=== PATIENT | male | born 1945 | race Caucasian/White ===

== ENCOUNTER 2016-05-25 07:07 | Emergency (ER) | payer MEDICARE, BC ==
--- NOTE | 2016-05-25 08:05 | EDM.PDOC ---
[id number] for 2 hours Time Seen by Provider: 05/25/16 07:33 Source of Information: Reports: Patient, Family History Limitations: Reports: No limitations - History of Present Illness INITIAL COMMENTS - FREE TEXT/NARRATIVE: Evaristo appears this morning with complaints of a nose bleed since approximately 6 Am. He states since he has started taking the cancer medication Imbruvica he has had recurrent nose bleeds. He states this is the worst of them. He has it packed with tissue. He has no other complaints. Has had nasal cautery performed by both his PCP and nose specialist. Symptom Onset Date: 05/25/16 Symptom Onset Time: 06:00 Severity: moderate Location: Reports: right nares - Related Data Allergies/ADRs: Allergies Allergy/AdvReac Type Severity Reaction Status Date / Time atorvastatin calcium Allergy Hives Verified 05/25/16 07:45 [From Lipitor] rosuvastatin calcium Allergy Difficulty Verified 05/25/16 07:45 [From Crestor] Breathing Home Meds: Home Meds Albuterol/Ipratropium [Combivent Respimat] 1 puff INH TID 05/24/15 [History] Brimonidine Tartrate [Alphagan P] 1 drop EYEBOTH BID 05/24/15 [History] Calcium Carbonate/Vitamin D3 [Os-Ric 500+D] 1 tab PO TIDMEALS 05/24/15 [History] Cholestyramine/Aspartame [Questran Light Powder] 4 gm PO ASDIRECTED PRN [History] Ezetimibe [Zetia] 1 tab PO DAILY 05/24/15 [History] Ferrous Sulfate 325 mg PO ASDIRECTED 05/24/15 [History] Flaxseed/Omega3,6,9/Fatty Acid [Flax Seed Oil 1,300 mg Softgel] 1 each PO TID [History] Ibrutinib [Imbruvica] 3 cap PO DAILY 05/24/15 [History] Levothyroxine Sodium [Synthroid] 1 tab PO ASDIRECTED 05/24/15 [History] Lisinopril [Lisinopril] 5 mg PO DAILY 05/24/15 [History] Multivitamin [Multi-Vitamin Daily] 1 each PO DAILY 05/24/15 [History] Niacin 500 mg PO DAILY 05/24/15 [History] Omeprazole [Prilosec] 20 mg PO DAILY 05/24/15 [History] Riboflavin [Vitamin B-2] 25 mg PO DAILY 05/24/15 [History] Salmeterol Xinafoate [Serevent Diskus] 50 mcg IH BID 05/24/15 [History] Saw [place] Fruit [Saw [place]] 2 cap PO BID 05/24/15 [History] Past Medical History HEENT History: Reports: Cataract, Glaucoma, Other (see below) Other HEENT History: Blepharitis bilat. Pinguecula L eye. Epistaxis Cardiovascular History: Reports: High cholesterol, Hypertension, Other (see below) Other Cardiovascular History: Tachycardia. Low HDL Respiratory History: Reports: COPD, Interstitial lung disease, Sleep apnea Other Respiratory History: Sleep related hypoxia Gastrointestinal History: Reports: Colon polyp, PUD, Other (see below) Other Gastrointestinal History: Abdominal lymphadenopathy Genitourinary History: Reports: Other (see below) Musculoskeletal History: Reports: Other (see below) Other Musculoskeletal History: Closed FX of scapula Neurological History: Reports: Other (see below) Other Neuro History: Essential tremor Endocrine/Metabolic History: Reports: Hypothyroidism Oncologic (Cancer) History: Reports: Basal cell carcinoma, Other (see below) Other Oncologic History: Chronic lymphocystic leukemia - Past Surgical History GI Surgical History: Reports: Colonoscopy, Polypectomy, Other (see below) Other GI Surgeries/Procedures: EGD Social & Family History - Tobacco Use Smoking Status *Q: Former Smoker ED ROS ENT - Review of Systems Review Of Systems: ROS reveals no pertinent complaints other than HPI. ED EXAM, ENT - Physical Exam Exam: See Below Exam Limited By: No limitations General Appearance: alert, WD/WN, no apparent distress Nose: normal inspection, dried blood, other (right nare inspected, no active epistaxis noted. Prior cautery sights were visualized.) Mouth/Throat: Normal inspection, Other (No posterior pharynx bloody drainage noted.) Neurological: alert, oriented, CN II-XII intact, normal cognition Psychiatric: normal affect, normal mood Course - Vital Signs Last Recorded V/S: Last Vital Signs Temp 35.4 C 05/25/16 07:10 Pulse 77 05/25/16 07:10 Resp 18 05/25/16 07:10 BP 119/74 05/25/16 07:10 Pulse Ox 91 L 05/25/16 07:10 - Re-Assessments/Exams Free Text/Narrative Re-Assessment/Exam: 05/25/16 08:12 I did attempt to cauterize any openly active bleeding to the right nare. After removing the tissue packing, I was unable to visualize any anterior nasal epistaxis. I did not visualize any bleeding to the posterior nasal cavity either. Patient feels that active bleeding may have ceased. Will observe for 15-30 minutes and discharge if in fact the bleeding has stopped, insert a nasal tampon if it resumes. Departure - Departure Time of Disposition: 08:25 Disposition: Home, Self-Care 01 Condition: good Clinical Impression: Right-sided epistaxis Instructions: Nosebleed, [id number] Referrals: Arti Byers, [Primary Care Provider] - Forms: ED Department Discharge Additional Instructions: Return for any additional uncontrolled nosebleeds. You can use tissue or gauze to apply pressure and get your nose bleed to stop as this was successful for you this morning. You will continue to have these as long as you are on your current cancer medication. Please call with any questions or concerns. - Problem List & Annotations (1) Right-sided epistaxis SNOMED Code(s): 374700567 Code(s): R04.0 - EPISTAXIS Status: Acute Priority: Medium - Problem List Review Problem List Initiated/Reviewed/Updated: Yes - Assessment/Plan Assessment:: Right sided epistaxis Plan: Return for any additional uncontrolled nosebleeds. You can use tissue or gauze to apply pressure and get your nose bleed to stop as this was successful for you this morning. You will continue to have these as long as you are on your current cancer medication. Please call with any questions or concerns.
== END 2016-05-25 08:33 | disposition home or self-care (01) ==
LOC: VM.ED 07:07
CPT/HCPCS: 99282-GF; 99283

== ENCOUNTER 2017-03-30 11:01 | Inpatient (IN) | payer MEDICARE, BC ==
[2017-03-30] MEDS ORDERED: Acetaminophen 325 MG Tab PO PRN (11:19)
[2017-03-30] MEDS ORDERED: Ondansetron 4 MG Tab.DIS PO PRN (11:19)
[2017-03-30] MEDS: Albuterol/Ipratropium 3.0-0.5 MG/3 ML Neb Soln NEB SCH ×2 (12:27→20:37)
[2017-03-30] MEDS: Sodium Chloride 0.9% 10 ML Syringe FLUSH PRN (12:32)
[2017-03-30] MEDS: Lactated Ringers 1,000 ML IV SCH ×2 (12:51→20:59)
[2017-03-30] MEDS: Oseltamivir 30 MG Cap PO SCH ×2 (12:57→20:37)
[2017-03-30] MEDS ORDERED: Albuterol/Ipratropium 3.0-0.5 MG/3 ML Neb Soln NEB PRN (13:03)
[2017-03-30] MEDS: predniSONE 20 MG Tab PO SCH (14:09)
[2017-03-30] MEDS: Doxycycline 100 MG Cap PO SCH ×2 (14:14→20:37)
[2017-03-30] MEDS: Psyllium Husk Powder Sugar Free 5.85 GM Packet PO SCH (14:14)
[2017-03-30] MEDS: SAW PALMETTO FRUIT PO SCH (20:34)
[2017-03-30] MEDS: BRIMONIDINE TARTRATE EYEBOTH SCH (20:36)
[2017-03-30] MEDS: Formoterol/Mometasone 200-5 MCG 8.8 GM Inhaler IH SCH (20:36)
--- NOTE | 2017-03-30 22:16 | HP ---
CHIEF COMPLAINT: Influenza A. HISTORY OF PRESENT ILLNESS: This is a 71-year-old male with longstanding CLL, on Imbruvica treatments, who came into the clinic with fever, chest congestion, productive cough, fatigue, and shortness of breath for the past 3 days. His symptoms started on 03/27 in the morning. He does drive school bus, but he has not been aware of any direct influenza exposure. He has not had any productive sputum, but does have underlying COPD, and he is on Combivent currently. He used to use oxygen at night, but stopped due to nosebleeds. He had exacerbation of his lung symptoms in January and had Prednisone at that time. Otherwise, told the nurse that he got up during the night, drove the bus, thinking it was morning, so he has been quite confused. He did not give me this story. I tried to contact her to just collaborate it. Otherwise, he did have lab work through the clinic, which I will mention here also. His white count was normal at 9.5, hemoglobin 16.4, platelets down to 99. They have been closer to 100 in the past as well. Glucose 84, BUN 23, creatinine 1.47, sodium 134, chloride 101, bicarb 22, calcium 9.1, albumin 3.6. AST and ALT normal. Alkaline phosphatase normal. GFR around 47. ALLERGIES: Include Crestor and Lipitor caused hives. MEDICATIONS LIST: Currently includes Metamucil daily p.r.n.; Alphagan eyedrops; prednisone was in January, course has been completed; lisinopril 5 mg daily; Zetia 10 mg daily; Imbruvica 140 mg 3 capsules daily; iron 325 daily; flaxseed 3 times a day; niacin 500 daily; riboflavin 25 mg daily; supplemental twice daily; calcium and vitamin D daily; multivitamin daily; levothyroxine 175 six days a week; Combivent 3 times a day; Symbicort 2 puffs 2 times a day; Prilosec 20 mg daily. PAST MEDICAL HISTORY: Includes essential hypertension; CLL with abdominal lymphadenopathy; hyperlipidemia; COPD with previous smoking 45 years; essential tremor; low HDL; peptic ulcer disease; interstitial lung disease, follows with pulmonary; bronchiectasis without complication, exacerbation in 04/10, got doxycycline; sleep-related hypoxia, but unable to tolerate oxygen due to nose bleeds, some of the bleeding could be from the Imbruvica. SOCIAL HISTORY: The patient is . He lives at home with his . He still drives school bus. He is a former smoker. He drinks rare alcohol. 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 FAMILY HISTORY: He has both parents . His father had stomach cancer. Surgically, he has had previous colonoscopies. REVIEW OF SYSTEMS: All systems reviewed and were negative unless otherwise stated: General: He has felt quite fatigued, but he did not mention any weight changes. He has had fever, but denies any chills. HEENT: He has felt some congestion, sore throat. Cardiac: No chest pain. He has noticed some palpitations. Respiratory: He is coughing but not having increased sputum. He is short of breath. He has wheezing. Abdomen: No nausea, vomiting, abdominal pain, or diarrhea, but he has had a decreased appetite. : No dysuria. Mental Status: He has had some confusion per his report to the nurse. He recognizes me today, but he did come up out of the exam room several times looking for his and needed to be redirected. DIAGNOSTICS: Chest x-ray in the clinic did not review any infiltrates. EKG did note to have atrial fibrillation with a rate of 122. He had a right axis deviation like a pulmonary disease pattern. There was no ST elevation or depression. This was a change from his EKG in 2013, which was normal. PHYSICAL EXAMINATION: Vital Signs: The patient's vitals at the hospital when I examined him to have a weight of 88.1 kg, temp 99.3, pulse 115, blood pressure 111/68, respiratory rate 32. It was 38 in the clinic, O2 of 93% on 2 L. General: He was in no acute distress. Heart: Regularly irregular. Lungs: Lung sounds were decreased with some scattered rhonchi but no wheezing. Abdomen: Nondistended, nontender. Extremities: Warm and dry. No edema. Mental Status: He is alert. He is orientated x3. ASSESSMENT: 1. Influenza A. 2. Acute hypoxic respiratory failure secondary to influenza A. even though his sats in the clinic remained about 90% on room air without oxygen, now over at the hospital due to using the mask, we have had to turn it up to 4 L to maintain sats over 90%. 3. Atrial fibrillation, new onset with rapid ventricular rates, likely due to acute illness with influenza. Given his low platelets, I am going to hold off on any anticoagulation. 4. Essential hypertension. Blood pressures are under good control. Due to renal insufficiency, I am going to hold his MARIANGEL inhibitor. 5. Acute renal failure. Baseline creatinine is 1 or less. His creatinine is up to 1.47. We will give him some IV fluids. We will adjust Tamiflu for renal dosing. 6. Chronic CLL. He is on Imbruvica. I have contacted Hematology regarding this. I am going to hold it for now until I get further recommendations from them. His white count is actually normal. 7. Chronic obstructive pulmonary disease, chronic with exacerbation due to influenza. I am going to give him 20 mg of oral steroids due to his underlying bronchiectasis. I am going to also order doxycycline. PLAN: At this point, the patient will be admitted for acute cares. He will be admitted for scheduled nebulizers, IV fluids, incentive spirometry, flutter valve, repeat lab work in the morning. He will be on continuous pulse oximetry and telemetry. He is a code level 1 for DVT prophylaxis. I have ordered him on SCDs. MKA: 03/30/2017 13:41:19 MODL: 03/30/2017 22:09:15 /[id number]
[2017-03-31] MEDS: Lactated Ringers 1,000 ML IV SCH ×3 (04:10→19:56)
[2017-03-31] MEDS: Omeprazole 20 MG Cap.CR PO SCH (06:12)
[2017-03-31] MEDS: Albuterol/Ipratropium 3.0-0.5 MG/3 ML Neb Soln NEB SCH ×3 (07:24→19:56)
[2017-03-31] MEDS: Ferrous Sulfate 325 MG Tab PO SCH (08:08)
[2017-03-31] MEDS: Doxycycline 100 MG Cap PO SCH ×2 (08:08→19:56)
[2017-03-31] MEDS: Ezetimibe 10 MG Tab PO SCH (08:08)
[2017-03-31] MEDS: predniSONE 20 MG Tab PO SCH (08:08)
[2017-03-31] MEDS: Psyllium Husk Powder Sugar Free 5.85 GM Packet PO SCH (08:08)
[2017-03-31] MEDS: Oseltamivir 30 MG Cap PO SCH ×2 (08:08→19:56)
[2017-03-31] MEDS: SAW PALMETTO FRUIT PO SCH ×2 (08:09→19:57)
[2017-03-31] MEDS: Formoterol/Mometasone 200-5 MCG 8.8 GM Inhaler IH SCH ×2 (08:09→19:57)
[2017-03-31] MEDS: BRIMONIDINE TARTRATE EYEBOTH SCH ×2 (08:09→19:58)
[2017-03-31] MEDS: methylPREDNISolone Sodium Succinate 40 MG/1 ML SDV IVPUSH SCH ×2 (09:25→19:56)
--- NOTE | 2017-03-31 09:48 | PN ---
Progress Note for ALEXANDRE BURTON Date: 03/31/2017 Room #: VM.210 SUBJECTIVE: Hospital day #2 with a 71-year-old admitted with influenza A. He has acute hypoxic respiratory failure. We did have him on a non-rebreather up to 10 L overnight as he does not tolerate the nasal cannula very well due to nose bleeds. This morning, he was put on nasal cannula to eat breakfast. He is saturating into the mid 90s on 5 L. He is feeling okay. He says he is less short of breath. He is still coughing, but it is whitish sputum, some wheezing, but the nebulizers help. No abdominal pain. He continues to have muscle aches. He did have a temp 100.6 at 10:00 p.m. last night. Otherwise, he has been afebrile. Heart rates have been up into the 120s with atrial fibrillation. He has been on IV fluids. He has had only small urine output. Otherwise, the kidney function did improve today. OBJECTIVE: Vital Signs: His temperature is 98.9, pulse 94, blood pressure 98/74, respiratory rate 20. His oxygen level is 92 on 5 L. General: He is in no acute distress. Heart: Irregularly irregular. Lungs: Sounds are decreased with scattered rhonchi and rare expiratory wheezing throughout. Abdomen: Nondistended, nontender. Extremities: Warm and dry. No edema. Mental Status: He is alert. He is orientated x3. He is remembering some of the events from yesterday. IMAGING DATA: Chest x-ray is done. His left hemidiaphragm is slightly elevated. There appears to be some infiltrate on the lateral view. He has been on doxycycline. We will await radiology report. LABORATORY DATA: White count 6.6, hemoglobin 14.5, platelets down to 82. They were around 97 yesterday. Sodium 135, potassium 4.3, chloride 102, bicarb 26, BUN 24, creatinine 1.3, glucose 71, calcium 7.8. ASSESSMENT AND PLAN: 1. Acute hypoxic respiratory failure secondary to influenza A. 2. Influenza A. 3. Chronic lung disease with chronic obstructive pulmonary disease. He used to be on oxygen at night. He has an acute exacerbation due to influenza. He is on oral prednisone and scheduled nebulizers. I am going to increase him the IV Solu-Medrol today. 4. Chronic lymphocytic leukemia. He is on Imbruvica, that has been on hold. He questioned this. I did tell him I have been in contact with his carpenter general who agreed with holding for now. We are following his blood counts. 5. Acute renal failure, improved. Creatinine down to 1.3 today. We will continue IV fluids. 6. Atrial fibrillation, new onset with rapid ventricular response, likely due to acute illness. Heart rates have been up to 120s. We will continue to monitor closely. We will continue to watch the blood pressure. We may need to start digoxin or give IV Cardizem. 7. Essential hypertension. Blood pressure medication is on hold. Blood pressure is actually running lower due to acute illness. PLAN: At this point, the patient will continue acute cares. I am going to start some IV Solu-Medrol. He is on Tamiflu. He is on incentive spirometry. He is on scheduled nebs. We will repeat lab work in the morning. For DVT prophylaxis, he is on SCDs due to low platelets. CHRISTYA: 03/31/2017 08:36:45 MODL: 03/31/2017 09:20:17 /[id number]
[2017-03-31] MEDS: IBRUTINIB PO SCH (15:18)
--- NOTE | 2017-03-31 16:25 | PCM.SN ---
- Free Text/Narrative Note: ABG reviewed and look OK oxygen over 90 and CO2 not elevated. We will add rocephin given known bronchiectasis he has no hx of pseudomonas. He is not currently having purulent sputum. Sputum clt were not obtained due to lack of infiltrates and he is already on ABX.
[2017-03-31] MEDS: cefTRIAXone 2 GM Vial IVPUSH SCH (17:22)
[2017-04-01] MEDS: Omeprazole 20 MG Cap.CR PO SCH (06:14)
[2017-04-01] MEDS: Albuterol/Ipratropium 3.0-0.5 MG/3 ML Neb Soln NEB SCH ×3 (07:26→20:35)
[2017-04-01] MEDS: Psyllium Husk Powder Sugar Free 5.85 GM Packet PO SCH (07:39)
[2017-04-01] MEDS: Ferrous Sulfate 325 MG Tab PO SCH (07:39)
[2017-04-01] MEDS: Oseltamivir 30 MG Cap PO SCH ×2 (07:39→20:35)
[2017-04-01] MEDS: Doxycycline 100 MG Cap PO SCH ×2 (07:39→20:35)
[2017-04-01] MEDS: cefTRIAXone 2 GM Vial IVPUSH SCH (07:39)
[2017-04-01] MEDS: IBRUTINIB PO SCH (07:39)
[2017-04-01] MEDS: Ezetimibe 10 MG Tab PO SCH (07:39)
[2017-04-01] MEDS: methylPREDNISolone Sodium Succinate 40 MG/1 ML SDV IVPUSH SCH ×3 (07:39→20:36)
[2017-04-01] MEDS: Formoterol/Mometasone 200-5 MCG 8.8 GM Inhaler IH SCH ×2 (07:40→20:36)
[2017-04-01] MEDS: BRIMONIDINE TARTRATE EYEBOTH SCH ×3 (07:40→20:35)
[2017-04-01] MEDS: SAW PALMETTO FRUIT PO SCH ×2 (07:40→20:36)
[2017-04-01] MEDS: Lactated Ringers 1,000 ML IV SCH (07:44)
[2017-04-01] MEDS: Diltiazem IR 30 MG Tab PO SCH ×3 (08:00→20:35)
--- NOTE | 2017-04-01 09:21 | PN ---
Progress Note for ALEXANDRE BURTON Date: 04/01/2017 Room #: VM.210 SUBJECTIVE: This is hospital day #3 on a 71-year-old admitted with influenza A and acute hypoxic respiratory failure. The patient is now improving. He is coming down on his non-rebreather mask, as he is 95% to 100%. Plan to go over to simple mask as discussed with RT. He is still coughing, but it is not purulent sputum. He feels it is a little bit better than yesterday. He is actually asking about going home. During the night, he was up thinking it was time to get up and shower. Had taken off all his oxygen and monitoring equipment. We did ABGs yesterday. CO2 was not elevated. He was oxygenating well on 10 L non-rebreather. Otherwise, he has now been afebrile. He has no stomach pain. He is voiding okay. OBJECTIVE: Vital Signs: His temperature is 97; pulse 103; blood pressure 100/60, but it was up to 138/68 last night; respiratory rate 24; and O2 100% on 8 L. General: He is in no acute distress. Heart: Regularly irregular. Respiratory: Lungs sounds are clear throughout without crackles or wheezes. Abdomen: Nondistended and nontender. Extremities: Warm and dry. No edema. Mental Status: He is alert and orientated x3. LABORATORY DATA: Lab work does show white count of 5.1, hemoglobin at 14.2, and platelets at 91. Sodium 139, potassium 4.6, chloride 106, bicarb 26, BUN 19, creatinine 1.2, glucose 116, and calcium 8.2. ASSESSMENT: 1. Acute hypoxic respiratory failure secondary to influenza A, improving. 2. Influenza A, on Tamiflu. 3. Chronic obstructive pulmonary disease with exacerbation due to influenza, on IV prednisone, doxycycline scheduled and p.r.n. nebs. 4. Known bronchiectasis. Rocephin was added yesterday. 5. Chronic lymphocytic leukemia. He is on his home Imbruvica. 6. Thrombocytopenia, stable without bleeding. This is probably related to underlying illness, his CLL, and Imbruvica. 7. Acute renal failure, resolved. His creatinine is down to 1.2 today. He was receiving IV fluids. We will go ahead and stop that today. His intake has been excellent. 8. Atrial fibrillation, new onset, with rapid ventricular rates. Heart rate still remain right around 100. I am going to add some oral Cardizem today and monitor closely. We held off on this due to blood pressures. 9. Essential hypertension. His home MARIANGEL inhibitor is on hold. PLAN: At this point, the patient will continue acute cares. I am going to continue IV Solu-Medrol, IV Rocephin, Tamiflu, and oral doxycycline. RT to change him over to a simple mask and wean oxygen, scheduled nebulizers for DVT prophylaxis. He is on SCDs. I am going to get him up and working with therapies. Anticipate the soonest discharge could be tomorrow. CHRISTIE: 04/01/2017 08:45:59 MODL: 04/01/2017 09:09:13 /[id number]
[2017-04-02] MEDS: Omeprazole 20 MG Cap.CR PO SCH (06:30)
[2017-04-02] MEDS: Albuterol/Ipratropium 3.0-0.5 MG/3 ML Neb Soln NEB SCH (06:58)
[2017-04-02 07:18] LABS: CHLORIDE,CL 107 mmol/L (98-107); SODIUM,NA 140 mmol/L (136-145)
[2017-04-02] MEDS: Formoterol/Mometasone 200-5 MCG 8.8 GM Inhaler IH SCH ×2 (08:00→19:44)
[2017-04-02] MEDS: Ezetimibe 10 MG Tab PO SCH (08:00)
[2017-04-02] MEDS: Doxycycline 100 MG Cap PO SCH ×2 (08:00→19:42)
[2017-04-02] MEDS: cefTRIAXone 2 GM Vial IVPUSH SCH (08:00)
[2017-04-02] MEDS: Oseltamivir 30 MG Cap PO SCH ×2 (08:00→19:41)
[2017-04-02] MEDS: IBRUTINIB PO SCH (08:00)
[2017-04-02] MEDS: Psyllium Husk Powder Sugar Free 5.85 GM Packet PO SCH (08:00)
[2017-04-02] MEDS: Cefuroxime 250 MG Tab PO SCH ×2 (08:37→19:42)
[2017-04-02] MEDS: Ferrous Sulfate 325 MG Tab PO SCH (09:46)
[2017-04-02] MEDS: SAW PALMETTO FRUIT PO SCH ×2 (09:48→19:44)
[2017-04-02] MEDS: methylPREDNISolone Sodium Succinate 40 MG/1 ML SDV IVPUSH SCH ×2 (09:50→19:45)
[2017-04-02] MEDS: Diltiazem IR 30 MG Tab PO SCH (19:42)
[2017-04-02] MEDS: Sodium Chloride 0.9% 10 ML Syringe FLUSH PRN (19:42)
[2017-04-02] MEDS: BRIMONIDINE TARTRATE EYEBOTH SCH (19:44)
--- NOTE | 2017-04-03 00:11 | PN ---
Progress Note for ALEXANDRE BURTON Date: 04/02/2017 Room #: VM.210 SUBJECTIVE: Hospital day #4 on a 71-year-old admitted with influenza A and acute hypoxic respiratory failure. He continues to be confused during the night. He states he is just joking with the nurses. We did do a mini-mental status exam. He scored 26/30. 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 He was 80% of normal, which indicates maybe a mild dementia, but he likely has delirium related to his acute illness. He otherwise, has been afebrile. He is weaned down to 3 L of oxygen. He is feeling better. He has been on scheduled nebulizers. He is still coughing, but he is not short of breath or wheezing. Cough is not productive. He is not coughing up blood. He has had no nosebleeds. OBJECTIVE: Vital Signs: His temperature is 97.2; pulse is 98; blood pressure is 91/59, but later in the day, it was up to 130/90; respiratory rate is 20; and O2 is 96 on 3 L. General: He is in no acute distress. Heart: Regularly irregular. Pulmonary: Lungs sounds are clear to auscultation this morning without crackles or wheezes. Abdomen: Nondistended and nontender. Extremities: Warm and dry. No edema. MENTAL STATUS EXAMINATION: He is alert. He is orientated x3. ASSESSMENT: 1. Acute hypoxic respiratory failure secondary to influenza A, improving. 2. Influenza A, on Tamiflu, day 4 of 5. 3. Chronic obstructive pulmonary disease with exacerbation due to influenza. He is on IV prednisone, IV Rocephin, and oral doxycycline. 4. Known bronchiectasis with exacerbation. 5. CLL, stable, on Imbruvica. 6. Thrombocytopenia, stable without bleeding. This is a chronic problem. 7. Acute renal failure, resolved. His creatinine is down to 1.1. 8. Atrial fibrillation, new onset with rapid ventricular rates. This has improved with the addition of Cardizem. 9. Essential hypertension. His MARIANGEL inhibitor is on hold, but could be re- started on discharge if needed. PLAN: At this point, patient will continue acute cares. I have stopped his IV Rocephin. He did receive his last dose today. We will put him on oral Ceftin for two more days. On discharge, he will be on Tamiflu for one more dose after discharge. We will finish a full week of doxycycline. He will continue IV Solu - Medrol, but go home on prednisone 20 mg daily for five more days. We will change his nebulizers to p.r.n. If he does not require them, he will just go home on his same inhalers with Symbicort and Combivent. Hopefully, he will not need home oxygen because he has had it at night and had nosebleeds with it. We will continue weaning him down today. He has been seen by Therapy and did well. For his delirium due to his acute illness, this seems to be improving. 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 CHRISTIE: 04/02/2017 22:42:00 MODL: 04/03/2017 00:04:23 /[id number]
[2017-04-03 05:39] VITALS: BP 107/82
[2017-04-03] MEDS: Omeprazole 20 MG Cap.CR PO SCH (06:05)
[2017-04-03] MEDS: BRIMONIDINE TARTRATE EYEBOTH SCH (08:52)
[2017-04-03] MEDS: Ezetimibe 10 MG Tab PO SCH (08:52)
[2017-04-03] MEDS: Doxycycline 100 MG Cap PO SCH (08:52)
--- NOTE | 2017-04-03 08:52 | PCM.DCSUM1 ---
Discharge Summary - Hospital Course Brief History: Mr. James is a 71 yo male who was admitted with influenza A and hypoxic respiratory failure after he presented to clinic for confusion as well as cough and increased shortness of breath. - Discharge Data Discharge Date: 04/03/17 Discharge Disposition: Home, Self-Care 01 Condition: Good - Discharge Diagnosis/Problem(s) (1) Acute respiratory failure with hypoxia SNOMED Code(s): 68735413 ICD Code: J96.01 - ACUTE RESPIRATORY FAILURE WITH HYPOXIA Status: Acute Current Visit: Yes Problem Details: He had initially been requiring oxygen via nasal cannula. This is secondary to his influenza and COPD exacerbation. His oxygen requirements progressively decreased until he was weaned off completely as of yesterday. His oxygen saturations have remained stable on room air since yesterday. (2) Influenza A SNOMED Code(s): 505458702 ICD Code: J10.1 - FLU DUE TO OTH IDENT INFLUENZA VIRUS W OTH RESP MANIFEST Status: Acute Current Visit: Yes Problem Details: He was diagnosed with influenza A on admission and started on tamiflu. His cough and shortness of breath progressively improved. As of today, he is completely oriented. Otherwise , see details under COPD and hypoxic respiratory failure. He has been instructed not to drive until he follows up in clinic with Dr. Byers. (3) COPD (chronic obstructive pulmonary disease) SNOMED Code(s): 72280226 ICD Code: J44.9 - CHRONIC OBSTRUCTIVE PULMONARY DISEASE, UNSPECIFIED Status : Acute Current Visit: Yes Problem Details: He also had evidence of a COPD exacerbation based on symptoms and exam. He has been treated with solu-medrol and frequent nebulizers. He will transition to prednisone and his home inhalers for homegoing. He also met criteria to be treated with antibiotics. He has been on ceftriaxone and doxycycline. He will be transitioned to equivalent oral antibiotics for homegoing. Qualifiers: COPD type: COPD with acute exacerbation Qualified Code(s): J44.1 - Chronic obstructive pulmonary disease with (acute) exacerbation (4) ARF (acute renal failure) SNOMED Code(s): 46901740 ICD Code: N17.9 - ACUTE KIDNEY FAILURE, UNSPECIFIED Status: Acute Current Visit: Yes Problem Details: His creatinine was elevated on presentation but quickly returned to normal with IV fluids. Qualifiers: Acute renal failure type: unspecified Qualified Code(s): N17.9 - Acute kidney failure, unspecified (5) Atrial fibrillation with RVR SNOMED Code(s): 899716443807322 ICD Code: I48.91 - UNSPECIFIED ATRIAL FIBRILLATION Status: Acute Current Visit: Yes Problem Details: This is newly diagnosed as well. His rates have been well controlled on diltiazem. He is not felt to be a candidate for anticoagulation. (6) CLL (chronic lymphocytic leukemia) SNOMED Code(s): 51955585 ICD Code: C91.10 - CHRONIC LYMPHOCYTIC LEUK OF B-CELL TYPE NOT ACHIEVE REMIS Status: Chronic Current Visit: Yes Problem Details: He has chronic blood cell abnormalities related to this that have remained stable during his hospitalization. Due to bleeding risk in the setting of thrombocytopenia, he will not be anticoagulated at this time. (7) Hypertension SNOMED Code(s): 07726997 ICD Code: I10 - ESSENTIAL (PRIMARY) HYPERTENSION Status: Chronic Current Visit: Yes Problem Details: Blood pressures have been acceptable. His lisinopril has been held since admission and I will continue to hold this at the time of dismissal. It can be restarted if need be at the time of his hospital follow-up. Qualifiers: Hypertension type: essential hypertension Qualified Code(s): I10 - Essential (primary) hypertension - Patient Summary/Data Operative Procedure(s) Performed: none Complications: none Consults: Consultations 03/31/17 15:24 PT Evaluation and Treatment [CONS] Routine 04/02/17 08:20 OT Evaluation and Treatment [CONS] Routine Labs Pending at D/C: none Recommended Follow-up Testing/Procedures: none Planned Operative Procedure(s) after DC: none Hospital Course: See details under problems above. His confusion, cough, and shortness of breath all progressively improved. He was feeling back to his usual chronic shortness of breath on the day of dismissal and also felt that his confusion had cleared. He will be discharged on oral antibiotics and prednisone and will follow-up in clinic in a couple of weeks. - Patient Instructions Diet: Usual Diet as Tolerated Activity: As Tolerated Driving: Do Not Drive Notify Provider of: Fever, Increased Pain, Nausea and/or Vomiting - Discharge Plan Prescriptions/Med Rec: Diltiazem IR [Cardizem] 30 mg PO Q12HR #60 tablet Doxycycline Calcium [IMW: Doxycycline] 100 mg PO BID #3 capsule Prednisone [IJD: predniSONE] 20 mg PO DAILY #5 tablet Home Medications: Home Meds Albuterol/Ipratropium [Combivent Respimat] 1 puff INH TID 05/24/15 [History] Brimonidine Tartrate [Alphagan P] 1 drop EYEBOTH BID 05/24/15 [History] Calcium Carbonate/Vitamin D3 [Os-Ric 500+D] 1 tab PO DAILY 05/24/15 [History] Ezetimibe [Zetia] 10 mg PO DAILY 05/24/15 [History] Ferrous Sulfate 325 mg PO DAILY 05/24/15 [History] Ibrutinib [Imbruvica] 420 mg PO DAILY 05/24/15 [History] Levothyroxine Sodium [Synthroid] 175 mcg PO DAILY 05/24/15 [History] Multivitamin [Multi-Vitamin Daily] 1 each PO DAILY 05/24/15 [History] Niacin 500 mg PO DAILY 05/24/15 [History] Omeprazole [Prilosec] 20 mg PO DAILY 05/24/15 [History] Riboflavin [Vitamin B-2] 25 mg PO DAILY 05/24/15 [History] Saw [place] Fruit [Saw [place]] 1 cap PO BID 05/24/15 [History] Budesonide/Formoterol [Symbicort 160-4.5 MCG] 2 inh INH BID 03/30/17 [History] Diltiazem IR [Cardizem] 30 mg PO Q12HR #60 tablet 04/02/17 [Rx] Doxycycline Calcium [IMW: Doxycycline] 100 mg PO BID #3 capsule 04/02/17 [Rx] Prednisone [IJD: predniSONE] 20 mg PO DAILY #5 tablet 04/02/17 [Rx] - Discharge Summary/Plan Comment DC Time >30 min.: No - General Info Date of Service: 04/03/17 Subjective Update: Feeling much better this morning and is prepared to go home. His shortness of breath is at baseline. His confusion has cleared and he has not had any unusual behaviors in the past 24 hours. He is still coughing but this is improving as well. No fever or chills. No other concerns. - Review of Systems General: Reports: No Symptoms HEENT: Reports: No Symptoms Pulmonary: Reports: Shortness of Breath, Cough Cardiovascular: Reports: No Symptoms Gastrointestinal: Reports: No Symptoms Musculoskeletal: Reports: No Symptoms Skin: Reports: No Symptoms Neurological: Reports: No Symptoms - Patient Data Vitals - Most Recent: Last Vital Signs Temp 36.6 C 04/03/17 05:37 Pulse 94 04/03/17 05:37 Resp 18 04/03/17 05:37 BP 107/82 04/03/17 05:37 Pulse Ox 94 L 04/03/17 08:00 Weight - Most Recent: 88.11 kg I&O - Last 24 hours: Intake & Output 04/02/17 04/03/17 04/03/17 22:59 06:59 14:59 Intake Total 240 Balance 240 Med Orders - Current: Current Medications Acetaminophen (Tylenol) 650 mg PO Q4H PRN PRN Reason: Pain (Mild 1-3)/fever Albuterol/Ipratropium (Duoneb 3.0-0.5 Mg/3 Ml) 3 ml NEB Q4HRRT PRN PRN Reason: Cough Cefuroxime Axetil (Ceftin) [address] [facility] Last Admin: 04/02/17 19:42 Dose: 250 mg Diltiazem HCl (Cardizem) [address] [facility] Last Admin: 04/02/17 19:42 Dose: 30 mg Doxycycline Hyclate (Vibramycin) [address] [facility] Stop: 04/05/17 23:00 Last Admin: 04/02/17 19:42 Dose: 100 mg Ezetimibe (Zetia) [address] [facility] Last Admin: 04/02/17 08:00 Dose: 10 mg Ferrous Sulfate (Ferrous Sulfate) [address] [facility] Last Admin: 04/02/17 09:46 Dose: 325 mg Levothyroxine Sodium (Levothyroxine) 175 mcg PO DAILY@0700 [facility] Last Admin: 04/03/17 06:05 Dose: 175 mcg Methylprednisolone Sodium Succinate (Solu-Medrol) [address] [facility] Last Admin: 04/02/17 19:45 Dose: 40 mg Mometasone Furoate/Formoterol Fumar (Dulera 200-5 Mcg) [address] [facility] Last Admin: 04/02/17 19:44 Dose: 2 puff Brimonidine Tartrate [Alphagan P] (Own Supply) [address] [facility] Last Admin: 04/02/17 19:44 Dose: 1 drop Saw [place] Fruit [ Saw [place]] (Own Supply) [address] [facility] Last Admin: 04/02/17 19:44 Dose: Not Given Ibrutinib [Imbruvica (] (Own Supply)) [address] [facility] Last Admin: 04/02/17 08:00 Dose: 3 cap Omeprazole (Omeprazole) 20 mg PO DAILY@0700 [facility] Last Admin: 04/03/17 06:05 Dose: 20 mg Ondansetron HCl (Zofran Odt) 4 mg PO Q4H PRN PRN Reason: nausea, able to take PO Oseltamivir Phosphate (Tamiflu) [address] [facility] Stop: 04/03/17 23:00 Last Admin: 04/02/17 19:41 Dose: 30 mg Psyllium Husk (Metamucil Sugar Free) [address] [facility] Last Admin: 04/02/17 08:00 Dose: 1 pkt Sodium Chloride (Saline Flush) 10 ml FLUSH ASDIRECTED PRN PRN Reason: Keep Vein Open Last Admin: 04/02/17 19:42 Dose: 10 ml Discontinued Medications Albuterol/Ipratropium (Duoneb 3.0-0.5 Mg/3 Ml) [address] [facility] Last Admin: 04/02/17 06:58 Dose: 3 ml Ceftriaxone Sodium (Rocephin) [address] [facility] Last Admin: 04/02/17 08:00 Dose: 2 gm Lactated Ringer's (Ringers, Lactated) 1,000 mls @ 125 mls/hr IV ASDIRECTED [facility] Stop: 04/01/17 12:00 Last Admin: 04/01/17 07:44 Dose: 125 mls/hr Prednisone (Prednisone) [address] [facility] Last Admin: 03/31/17 08:08 Dose: 20 mg - Exam General: Reports: Alert, Oriented, Cooperative, No Acute Distress HEENT: Reports: Mucous Membr. Moist/[place] Neck: Reports: Supple, Trachea Midline, No Thyromegaly. Denies: Lymphadenopathy Lungs: Reports: Normal Respiratory Effort, Rhonchi (throughout). Denies: Crackles Cardiovascular: Reports: Regular Rate, No Murmurs, Irregular Rhythm GI/Abdominal Exam: Normal Bowel Sounds, Soft, Non-Tender, No Organomegaly, No Distention, No Mass Extremities: Non-Tender, No Pedal Edema, Normal Capillary Refill Skin: Reports: Warm, Dry, Intact *Q Meaningful Use (DIS) - VTE *Q VTE Criteria *Q: - Stroke *Q Stroke Criteria *Q: - AMI *Q AMI Criteria *Q:
[2017-04-03] MEDS: Diltiazem IR 30 MG Tab PO SCH (08:53)
[2017-04-03] MEDS: Oseltamivir 30 MG Cap PO SCH (08:53)
[2017-04-03] MEDS: IBRUTINIB PO SCH (08:53)
[2017-04-03] MEDS: Cefuroxime 250 MG Tab PO SCH (08:53)
[2017-04-03] MEDS: Ferrous Sulfate 325 MG Tab PO SCH (08:53)
[2017-04-03] MEDS: Formoterol/Mometasone 200-5 MCG 8.8 GM Inhaler IH SCH (08:53)
[2017-04-03] MEDS: SAW PALMETTO FRUIT PO SCH (08:54)
[2017-04-03] MEDS: methylPREDNISolone Sodium Succinate 40 MG/1 ML SDV IVPUSH SCH (08:54)
[2017-04-03] MEDS: Psyllium Husk Powder Sugar Free 5.85 GM Packet PO SCH (08:54)
== END 2017-04-03 11:10 | disposition home or self-care (01) | DRG 193 ==
LOC: VM.MS 11:08
PROVIDERS: ADMIT Internal Medicine; ATTEND Internal Medicine
DX: J10.1 Influenza due to other identified influenza virus with other respiratory manifestations (principal); J96.01 Acute respiratory failure with hypoxia; N17.9 Acute kidney failure, unspecified; C91.10 Chronic lymphocytic leukemia of B-cell type not having achieved remission; J44.1 Chronic obstructive pulmonary disease with (acute) exacerbation; D69.6 Thrombocytopenia, unspecified; Z87.891 Personal history of nicotine dependence; I48.91 Unspecified atrial fibrillation; I10 Essential (primary) hypertension; E78.5 Hyperlipidemia, unspecified; R25.1 Tremor, unspecified; Z88.8 Allergy status to other drugs, medicaments and biological substances; Z79.899 Other long term (current) drug therapy
CPT/HCPCS: 36415; 36600; 71046; 80048; 82803; 82962; 85025; 93005; 94640; 94667; 94668; 94760; 97161-GP; A9270-GY; G0515-GO; J0696; J2920; J7050; J7120

== ENCOUNTER 2017-04-25 12:00 | Emergency (ER) | payer MEDICARE, BC ==
[2017-04-25] MEDS: Sodium Chloride 0.9% 10 ML Syringe FLUSH PRN (13:20)
[2017-04-25] MEDS: Sodium Chloride 0.9% 1,000 ML IV SCH (13:20)
[2017-04-25 13:25] LABS: CHLORIDE,CL 105 mmol/L (98-107); SODIUM,NA 139 mmol/L (136-145)
--- NOTE | 2017-04-25 14:01 | EDM.PDOC ---
ED HPI GENERAL MEDICAL PROBLEM - General Chief Complaint: General Stated Complaint: OXYGEN LEVEL Time Seen by Provider: 04/25/17 12:10 Source of Information: Reports: Patient, Family History Limitations: Reports: No Limitations - History of Present Illness INITIAL COMMENTS - FREE TEXT/NARRATIVE: Patient presents with his today. She states he is becoming increasingly confused since his discharge in March. In March 2017 he was seen and treated as an inpatient for influenza and followed with Dr. Arti Byers. It was noted during this admission that he was somewhat confused and disoriented and this was thought to be in relation to hypoxia secondary to influenza infection. He did seem to improve during his hospital stay. Today however he is confused at times as to where he is, he also did attempt to leave the patient room on at least one occasion. He does have a history of chronic lymphocytic leukemia. He denies that he is confused. Onset: Gradual Duration: Getting Worse Location: Reports: Head Associated Symptoms: Reports: Confusion - Related Data Allergies Allergy/AdvReac Type Severity Reaction Status Date / Time atorvastatin calcium Allergy Severe Hives Verified 04/25/17 12:18 [From Lipitor] rosuvastatin calcium Allergy Severe Difficulty Verified 04/25/17 12:18 [From Crestor] Breathing Home Meds: Home Meds Albuterol/Ipratropium [Combivent Respimat] 1 puff INH TID 05/24/15 [History] Brimonidine Tartrate [Alphagan P] 1 drop EYEBOTH BID 05/24/15 [History] Calcium Carbonate/Vitamin D3 [Os-Ric 500+D] 1 tab PO DAILY 05/24/15 [History] Ezetimibe [Zetia] 10 mg PO DAILY 05/24/15 [History] Ferrous Sulfate 325 mg PO DAILY 05/24/15 [History] Ibrutinib [Imbruvica] 420 mg PO DAILY 05/24/15 [History] Levothyroxine Sodium [Synthroid] 175 mcg PO DAILY 05/24/15 [History] Multivitamin [Multi-Vitamin Daily] 1 each PO DAILY 05/24/15 [History] Niacin 500 mg PO DAILY 05/24/15 [History] Omeprazole [Prilosec] 20 mg PO DAILY 05/24/15 [History] Riboflavin [Vitamin B-2] 25 mg PO DAILY 05/24/15 [History] Saw [place] Fruit [Saw [place]] 1 cap PO BID 05/24/15 [History] Budesonide/Formoterol [Symbicort 160-4.5 MCG] 2 inh INH BID 03/30/17 [History] Diltiazem IR [Cardizem] 30 mg PO Q12HR #60 tablet 04/02/17 [Rx] Doxycycline Calcium [IMW: Doxycycline] 100 mg PO BID #3 capsule 04/02/17 [Rx] Prednisone [IJD: predniSONE] 20 mg PO DAILY #5 tablet 04/02/17 [Rx] Past Medical History HEENT History: Reports: Cataract, Glaucoma Other HEENT History: Blepharitis bilat. Pinguecula L eye. Epistaxis Cardiovascular History: Reports: High Cholesterol, Hypertension Other Cardiovascular History: Tachycardia. Low HDL Respiratory History: Reports: COPD, Interstitial Lung Disease Other Respiratory History: Sleep related hypoxia Gastrointestinal History: Reports: Colon Polyp Other Gastrointestinal History: Abdominal lymphadenopathy Genitourinary History: Reports: Other (See Below) Musculoskeletal History: Reports: Osteoarthritis Other Musculoskeletal History: Closed FX of scapula Neurological History: Reports: Other (See Below) Other Neuro History: Essential tremor Endocrine/Metabolic History: Reports: Hypothyroidism Oncologic (Cancer) History: Reports: Basal Cell Carcinoma, Other (See Below) Other Oncologic History: CLL - Infectious Disease History Infectious Disease History: Reports: Influenza - Past Surgical History Cardiovascular Surgical History: Reports: None Respiratory Surgical History: Reports: None GI Surgical History: Reports: Colonoscopy, Polypectomy Endocrine Surgical History: Reports: None Musculoskeletal Surgical History: Reports: None Social & Family History - Family History Family Medical History: Noncontributory - Tobacco Use Smoking Status *Q: Former Smoker Used Tobacco, but Quit: Yes Month Tobacco Last Used: Quit 10-12 years ago Second Hand Smoke Exposure: No - Caffeine Use Caffeine Use: Reports: Coffee - Alcohol Use Days Per Week of Alcohol Use: 3 Number of Drinks Per Day: 1 Total Drinks Per Week: 3 - Recreational Drug Use Recreational Drug Use: No ED ROS GENERAL - Review of Systems Review Of Systems: See Below Constitutional: Reports: No Symptoms HEENT: Reports: No Symptoms Respiratory: Reports: No Symptoms Cardiovascular: Reports: No Symptoms Endocrine: Reports: No Symptoms GI/Abdominal: Reports: No Symptoms : Reports: No Symptoms Musculoskeletal: Reports: No Symptoms Skin: Reports: No Symptoms Neurological: Reports: Confusion, Weakness Psychiatric: Reports: No Symptoms Hematologic/Lymphatic: Reports: No Symptoms Immunologic: Reports: No Symptoms ED EXAM, GENERAL - Physical Exam Exam: See Below Exam Limited By: Altered Mental Status General Appearance: Alert, WD/WN Eye Exam: Bilateral Eye: EOMI, Normal Inspection, PERRL Ears: Normal TMs Nose: Normal Inspection, Normal Mucosa, No Blood Throat/Mouth: Normal Inspection, Normal Lips, Normal Teeth, Normal Gums, Normal Oropharynx, Normal Voice, No Airway Compromise Head: Atraumatic, Normocephalic Neck: Normal Inspection, Supple, Non-Tender, Full Range of Motion Respiratory/Chest: No Respiratory Distress, Decreased Breath Sounds Cardiovascular: Normal Peripheral Pulses, Regular Rate, Rhythm, No Edema, No Gallop, No JVD, No Murmur, No Rub GI/Abdominal: Normal Bowel Sounds, Soft, Non-Tender, No Organomegaly, No Distention, No Abnormal Bruit, No Mass Back Exam: Normal Inspection, Full Range of Motion, NT Extremities: Normal Inspection, Normal Range of Motion, Non-Tender, Normal Capillary Refill, No Pedal Edema Neurological: Alert, Normal Gait, Confused, Disoriented, Slow to Respond Psychiatric: Normal Mood, Flat Affect Skin Exam: Warm, Dry, Intact, Normal Color, No Rash Lymphatic: No Adenopathy Course - Vital Signs Last Recorded V/S: Last Vital Signs Temp 36.3 C 04/25/17 12:07 Pulse 89 04/25/17 13:42 Resp 23 H 04/25/17 13:42 BP 112/83 04/25/17 13:42 Pulse Ox 91 L 04/25/17 13:42 - Orders/Labs/Meds Orders: Active Orders 24 hr Category Date Time Status EKG 12 Lead [EKG Documentation Completion] [RC] DAILY Care 04/25/17 12:39 Ordered Chest 1V Frontal [CR] Stat Exams 04/25/17 12:38 Ordered Head wo Cont [CT] Stat Exams 04/25/17 12:38 Ordered CULTURE BLOOD [BC] Stat Lab 04/25/17 12:50 Received CULTURE BLOOD [BC] Stat Lab 04/25/17 13:00 Results Saline Lock Insert [OM.PC] Routine Oth 04/25/17 12:38 Ordered Labs: Laboratory Tests 04/25/17 04/25/17 04/25/17 Range/Units 12:50 12:50 12:50 WBC 6.7 (4.0-10.0) x10^3/uL RBC 5.48 (4.5-6.0) x10^6/uL Hgb 17.1 D (14.0-18.0) g/dL Hct 50.9 (40.0-52.0) % MCV 92.9 (78.0-93.0) fL MCH 31.2 (26.0-32.0) pg MCHC 33.6 (32.0-36.0) g/dL RDW Coeff of Brooke 15.4 H (10.0-15.0) % Plt Count 165 (130-400) x10^3/uL Neut % (Auto) 67.3 (50.0-80.0) % Lymph % (Auto) 23.3 L (25.0-50.0) % [place] % (Auto) 8.0 (2.0-11.0) % Eos % (Auto) 1.0 (0.0-4.0) % Baso % (Auto) 0.4 (0.2-1.2) % PT 10.9 (9.8-11.8) SEC INR 1.0 L (2.0-3.5) POC ABG pH (7.35-7.45) POC ABG pCO2 (35-45) mmHG POC ABG pO2 (80-105) mmHG POC ABG HCO3 (22-26) mmol/L POC ABG Total CO2 (23-27) mmol/L POC ABG O2 Sat (95-98) % POC ABG Base Excess (-2-3) mmol/L POC FiO2 Sodium 139 (136-145) mmol/L Potassium 4.3 (3.5-5.1) mmol/L Chloride 105 (98-107) mmol/L Carbon Dioxide 29 (21-32) mmol/L BUN 15 (7-18) mg/dL Creatinine 1.2 (0.70-1.30) mg/dL Est Cr Clr Drug Dosing 49.47 mL/min Estimated GFR (MDRD) 59 Glucose 112 H (74-106) mg/dL Lactic Acid (0.4-2.0) mmol/L Calcium 9.0 (8.5-10.1) mg/dL Corrected Calcium 10.04 (8.5-10.1) mg/dL Total Bilirubin 0.9 (0.2-1.0) mg/dL AST 16 (15-37) U/L ALT 18 (16-63) U/L Alkaline Phosphatase 85 (46-116) U/L Troponin I < 0.017 (<=0.056) ng/mL C-Reactive Protein 0.8 (<=0.9) mg/dL Total Protein 6.6 (6.4-8.2) g/dL Albumin 2.7 L (3.4-5.0) g/dL Globulin 3.9 Albumin/Globulin Ratio 0.69 04/25/17 04/25/17 Range/Units 12:50 13:20 WBC (4.0-10.0) x10^3/uL RBC (4.5-6.0) x10^6/uL Hgb (14.0-18.0) g/dL Hct (40.0-52.0) % MCV (78.0-93.0) fL MCH (26.0-32.0) pg MCHC (32.0-36.0) g/dL RDW Coeff of Brooke (10.0-15.0) % Plt Count (130-400) x10^3/uL Neut % (Auto) (50.0-80.0) % Lymph % (Auto) (25.0-50.0) % [place] % (Auto) (2.0-11.0) % Eos % (Auto) (0.0-4.0) % Baso % (Auto) (0.2-1.2) % PT (9.8-11.8) SEC INR (2.0-3.5) POC ABG pH 7.474 H (7.35-7.45) POC ABG pCO2 32 L (35-45) mmHG POC ABG pO2 66 L (80-105) mmHG POC ABG HCO3 23 (22-26) mmol/L POC ABG Total CO2 24 (23-27) mmol/L POC ABG O2 Sat 94 L (95-98) % POC ABG Base Excess 0 (-2-3) mmol/L POC FiO2 0.21 Sodium (136-145) mmol/L Potassium (3.5-5.1) mmol/L Chloride (98-107) mmol/L Carbon Dioxide (21-32) mmol/L BUN (7-18) mg/dL Creatinine (0.70-1.30) mg/dL Est Cr Clr Drug Dosing mL/min Estimated GFR (MDRD) Glucose (74-106) mg/dL Lactic Acid 1.9 (0.4-2.0) mmol/L Calcium (8.5-10.1) mg/dL Corrected Calcium (8.5-10.1) mg/dL Total Bilirubin (0.2-1.0) mg/dL AST (15-37) U/L ALT (16-63) U/L Alkaline Phosphatase (46-116) U/L Troponin I (<=0.056) ng/mL C-Reactive Protein (<=0.9) mg/dL Total Protein (6.4-8.2) g/dL Albumin (3.4-5.0) g/dL Globulin Albumin/Globulin Ratio Meds: Medications Discontinued Medications Generic Name Dose Route Start Last Admin Trade Name Freq PRN Reason Stop Dose Admin Dexamethasone 4 mg 04/25/17 14:12 04/25/17 14:17 Dexamethasone Intensol PO 04/25/17 14:13 4 mg ONETIME ONE Administration Sodium Chloride 1,000 mls @ 100 mls/hr 04/25/17 12:45 04/25/17 13:20 Normal Saline IV 100 mls/hr ASDIRECTED AG Administration Sodium Chloride 10 ml 04/25/17 12:38 04/25/17 13:20 Saline Flush FLUSH 10 ml ASDIRECTED PRN Administration Keep Vein Open Departure - Departure Time of Disposition: 15:05 Disposition: DC/Tfer to Acute Hospital 02 Condition: Fair Clinical Impression: Brain mass - Discharge Information Referrals: Arti Byers DO [Primary Care Provider] - Forms: ED Department Discharge, [facility] - Discussed Case With (1) Discussed Case With (1): Admitting Provider, Other (Report called to DR. Rothman, hospitalist, and Dr. Barbosa, neurosurgery at [facility]. Stephan to assume care with Familia as consulting.) - Problem List & Annotations (1) Brain mass SNOMED Code(s): 634375864 Code(s): G93.9 - DISORDER OF BRAIN, UNSPECIFIED Status: Acute Priority: Low Current Visit: Yes - Problem List Review Problem List Initiated/Reviewed/Updated: Yes - My Orders Last 24 Hours: My Active Orders 04/25/17 12:38 Chest 1V Frontal [CR] Stat Head wo Cont [CT] Stat Saline Lock Insert [OM.PC] Routine 04/25/17 12:39 EKG 12 Lead [EKG Documentation Completion] [RC] DAILY 04/25/17 12:50 CULTURE BLOOD [BC] Stat 04/25/17 13:00 CULTURE BLOOD [BC] Stat - Assessment/Plan Last 24 Hours: My Active Orders 04/25/17 12:38 Chest 1V Frontal [CR] Stat Head wo Cont [CT] Stat Saline Lock Insert [OM.PC] Routine 04/25/17 12:39 EKG 12 Lead [EKG Documentation Completion] [RC] DAILY 04/25/17 12:50 CULTURE BLOOD [BC] Stat 04/25/17 13:00 CULTURE BLOOD [BC] Stat
[2017-04-25] MEDS: Dexamethasone 1 MG/ML Oral Drops 4 ML UD Cup PO ONE (14:17)
[2017-04-25 15:44] VITALS: BP 112/83
== END 2017-04-25 15:05 | disposition short-term general hospital (02) ==
LOC: VM.ED 12:00
DX: G93.89 Other specified disorders of brain (principal); Z87.891 Personal history of nicotine dependence; I10 Essential (primary) hypertension; E78.00 Pure hypercholesterolemia, unspecified; J44.9 Chronic obstructive pulmonary disease, unspecified; M19.90 Unspecified osteoarthritis, unspecified site; E03.9 Hypothyroidism, unspecified; Z79.899 Other long term (current) drug therapy; Z88.8 Allergy status to other drugs, medicaments and biological substances
CPT/HCPCS: 36415; 36600; 70450; 71045; 80053; 82803; 83605; 84484; 85025; 85610; 86140; 87040; 93005; 96360; 96361; 99285; A9270; J7030; J7050

== ENCOUNTER 2020-01-20 10:35 | Emergency (ER) | payer OTHER, MEDICARE, BC ==
[2020-01-20] MEDS ORDERED: Sodium Chloride 0.9% 500 ML IV SCH (11:15)
--- NOTE | 2020-01-20 11:27 | CT ---
[id number] CT/CT Head Stroke Protocol EXAM: CT Head Stroke Protocol CLINICAL DATA: UNRESPONSIVE EPISODE. COMPARISON STUDY: MRI from May 2017. CT from April 2017. FINDINGS: No evidence of acute intracranial hemorrhage or extra-axial fluid collection. No CT evidence of acute ischemia or hydrocephalus. Rounded hyperdense parenchymal mass in the right parietal lobe measuring approximately 5 x 5 x 4 mm (series 2 image 25 and series 5 image 37). This correlates with site of mass on the prior examination in 2018 at which time it measured approximately 14 x 12 x 13 mm. Encephalomalacia in the left frontal lobe underlying craniotomy site. Previously seen mass is no longer visualized. 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 Findings are superimposed on additional changes of chronic small vascular disease throughout the brain. Paranasal sinuses and mastoid air cells are clear. IMPRESSION: No acute findings in the brain. Multiple chronic findings are described above. Results relayed to Elvis Norris at time of dictation. Roberto Trejo MD 01/20/20 1126 Thank you for allowing us to participate in the care of your patient.
--- NOTE | 2020-01-20 11:27 | EDM.PDOC ---
ED HPI GENERAL MEDICAL PROBLEM - General Chief Complaint: Neuro Symptoms/Deficits Stated Complaint: STROKE CODE Time Seen by Provider: 01/20/20 10:35 Source of Information: Reports: Patient History Limitations: Reports: No Limitations - History of Present Illness INITIAL COMMENTS - FREE TEXT/NARRATIVE: Pt. presents to ER via EMS following an episode of decreased level of consci ousness at home. He was sitting up at his computer when the incident happened. stated to EMS that he was unresponsive, but pt. feels that he was not "completely out". Pt. was responsive by the time EMS arrived. PD states that he was a bit slow to respond and confused on their arrival. Pt. Denies any other complaints. No fever or chills. No chest pain or shortness of breath. No sore throat or congestion. Denies any headache. No numbness/tingling in extremities. No facial droop. No problems with speech on arrival to ER. He was not incontinent of urine. Denies any recent head trauma. 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 He was treated with IV antifungal medication and states that this problem is in remission. He currently is followed by the [facility] in [place], but sees [facility] for chronic medical conditions. Pt. does have a history of CLL. He has a history of intermittent atrial fib but is not on any medication for this and is not currently anticoagulated. Onset: Today Location: Reports: Generalized - Related Data Allergies Allergy/AdvReac Type Severity Reaction Status Date / Time atorvastatin calcium Allergy Severe Hives Verified 05/23/17 14:40 [From Lipitor] rosuvastatin calcium Allergy Severe Difficulty Verified 05/23/17 14:40 [From Crestor] Breathing Home Meds: Home Meds Brimonidine Tartrate [Alphagan P] 1 drop EYEBOTH BID 05/24/15 [History] Calcium Carbonate/Vitamin D3 [Os-Ric 500+D] 1 tab PO BIDMEALS 05/24/15 [History] Ezetimibe [Zetia] 10 mg PO DAILY 05/24/15 [History] Ibrutinib [Imbruvica] 420 mg PO DAILY 05/24/15 [History] Levothyroxine Sodium [Synthroid] 175 mcg PO DAILY 05/24/15 [History] Multivitamin [Multi-Vitamin Daily] 1 each PO DAILY 05/24/15 [History] Omeprazole [Prilosec] 20 mg PO DAILY 05/24/15 [History] Acetaminophen [Tylenol] 650 mg PO Q4H PRN 05/19/17 [History] Amphotericin B Liposomal [Ambisome] 424 mg IV Q24H 05/19/17 [History] Cholecalciferol (Vitamin D3) [Vitamin D3] 1 tab PO DAILY 05/19/17 [History] Cyanocobalamin/Folic AC/Vit B6 [Folbee] 1 tab PO DAILY 05/19/17 [History] Dextrose 5 % in Water [Dextrose 5%-Water IV Soln] 10 - 15 ml IV Q24H 05/19/17 [History] Docusate Sodium [Colace] 100 mg PO BID 05/19/17 [History] Fluticasone/Vilanterol [Breo Ellipta 200-25 Mcg INH] 1 puff PO DAILY 05/19/17 [History] Heparin Sodium,Porcine/PF [Heparin IV Flush 100 Units/ml] 300 unit IV Q24H 05/19/17 [History] Sodium Chloride 0.9% [Saline Flush] 10 ml FLUSH ASDIRECTED PRN 05/19/17 [History] Past Medical History HEENT History: Reports: Cataract, Glaucoma Other HEENT History: Blepharitis bilat. Pinguecula L eye. Epistaxis Cardiovascular History: Reports: High Cholesterol, Hypertension Other Cardiovascular History: Tachycardia. Low HDL Respiratory History: Reports: COPD, Interstitial Lung Disease Other Respiratory History: Sleep related hypoxia Gastrointestinal History: Reports: Colon Polyp, PUD Other Gastrointestinal History: Abdominal lymphadenopathy Genitourinary History: Reports: Other (See Below) Musculoskeletal History: Reports: Osteoarthritis Other Musculoskeletal History: Closed FX of scapula Neurological History: Reports: Other (See Below) Other Neuro History: Essential tremor Endocrine/Metabolic History: Reports: Hypothyroidism Hematologic History: Reports: None Oncologic (Cancer) History: Reports: Basal Cell Carcinoma, Other (See Below) Other Oncologic History: CLL - Infectious Disease History Infectious Disease History: Reports: None - Past Surgical History Head Surgeries/Procedures: Reports: Craniotomy Cardiovascular Surgical History: Reports: None Respiratory Surgical History: Reports: None GI Surgical History: Reports: Colonoscopy, EGD, Polypectomy Endocrine Surgical History: Reports: None Neurological Surgical History: Reports: Other (See Below) Other Neurological Surgeries/Procedures: craniotomy Musculoskeletal Surgical History: Reports: None Social & Family History - Family History Family Medical History: No Pertinent Family History - Caffeine Use Caffeine Use: Reports: Coffee ED ROS GENERAL - Review of Systems Review Of Systems: See Below Constitutional: Reports: No Symptoms. Denies: Fever, Chills, Malaise, Weakness, Fatigue, Night Sweats, Diaphoresis, Weight Loss HEENT: Reports: No Symptoms Respiratory: Reports: No Symptoms Cardiovascular: Reports: No Symptoms Endocrine: Reports: No Symptoms GI/Abdominal: Reports: No Symptoms : Reports: No Symptoms Musculoskeletal: Reports: No Symptoms Skin: Reports: No Symptoms Neurological: Reports: Other (See HPI) Psychiatric: Reports: No Symptoms Hematologic/Lymphatic: Reports: No Symptoms Immunologic: Reports: No Symptoms ED EXAM, GENERAL - Physical Exam Exam: See Below Exam Limited By: No Limitations General Appearance: Alert, WD/WN, No Apparent Distress Eye Exam: Bilateral Eye: EOMI, Normal Fundi, Normal Inspection, PERRL Nose: Normal Inspection, Normal Mucosa Throat/Mouth: Normal Inspection, Normal Lips, Normal Teeth, Normal Gums, No Airway Compromise, Other (oral mucosa is dry) Head: Atraumatic, Normocephalic Neck: Normal Inspection, Supple, Non-Tender, Full Range of Motion Respiratory/Chest: No Respiratory Distress, Lungs Clear, No Accessory Muscle Use, Chest Non-Tender Cardiovascular: Normal Peripheral Pulses, Regular Rate, Rhythm, No Edema, No JVD Peripheral Pulses: 4+: Radial (R), Posterior Tibial (L), Posterior Tibial (R) GI/Abdominal: Normal Bowel Sounds, Soft, Non-Tender, No Distention, No Mass (Male) Exam: Deferred Rectal (Males) Exam: Deferred Back Exam: Normal Inspection, Full Range of Motion Extremities: Normal Inspection, Normal Range of Motion, Non-Tender, Normal Capillary Refill Neurological: Alert, Oriented, CN II-XII Intact, Normal Cognition, Normal Reflexes, No Motor/Sensory Deficits Psychiatric: Normal Affect, Normal Mood Skin Exam: Warm, Dry, Intact, Normal Color, No Rash Lymphatic: No Adenopathy #1 Interpretation EKG Date: 01/20/20 Rhythm: A-Fib Course - Orders/Labs/Meds Labs: Laboratory Tests 01/20/20 01/20/20 01/20/20 Range/Units 10:58 10:58 10:58 WBC 10.8 H (4.0-10.0) x10^3/uL RBC 5.26 (4.5-6.0) x10^6/uL Hgb 14.1 D (14.0-18.0) g/dL Hct 43.6 (40.0-52.0) % MCV 82.9 D (78.0-93.0) fL MCH 26.8 (26.0-32.0) pg MCHC 32.3 (32.0-36.0) g/dL RDW Coeff of Brooke 18.8 H (10.0-15.0) % Plt Count 102 L (130-400) x10^3/uL Neut % (Auto) 70.4 (50.0-80.0) % Lymph % (Auto) 17.7 L (25.0-50.0) % [place] % (Auto) 10.9 (2.0-11.0) % Eos % (Auto) 0.6 (0.0-4.0) % Baso % (Auto) 0.4 (0.2-1.2) % PT 10.2 (9.5-12.3) SEC INR 0.9 L (2.0-3.5) APTT (25.6-32.8) SEC Sodium 143 (136-145) mmol/L Potassium 3.8 (3.5-5.1) mmol/L Chloride 106 (98-107) mmol/L Carbon Dioxide 29 (21-32) mmol/L Anion Gap 11.8 (10-20) mmol/L BUN 27 H (7-18) mg/dL Creatinine 1.8 H (0.70-1.30) mg/dL Est Cr Clr Drug Dosing TNP Estimated GFR (MDRD) 37 Glucose 105 (74-106) mg/dL Calcium 8.7 (8.5-10.1) mg/dL Corrected Calcium 9.34 (8.5-10.1) mg/dL Magnesium 1.4 L (1.8-2.4) mg/dL Total Bilirubin 0.7 (0.2-1.0) mg/dL AST 22 (15-37) U/L ALT 25 (16-63) U/L Alkaline Phosphatase 92 (46-116) U/L Troponin I (<=0.056) ng/mL C-Reactive Protein 0.4 (<=0.9) mg/dL Total Protein 6.2 L (6.4-8.2) g/dL Albumin 3.2 L (3.4-5.0) g/dL Globulin 3.0 Albumin/Globulin Ratio 1.07 Urine Color (YELLOW) Urine Appearance (CLEAR) Urine pH (5.0-8.0) Ur Specific [place] Urine Protein (NEGATIVE) mg/dL Urine Glucose (UA) (NEGATIVE) mg/dL Urine Ketones (NEGATIVE) mg/dL Urine Occult Blood (NEGATIVE) Urine Nitrite (NEGATIVE) Urine Bilirubin (NEGATIVE) Urine Urobilinogen (0.2) EU/dL Ur Leukocyte Esterase (NEGATIVE) SARS CoV-2 RNA Rapid PEARL (NEGATIVE) 01/20/20 01/20/20 01/20/20 Range/Units 10:58 10:58 11:01 WBC (4.0-10.0) x10^3/uL RBC (4.5-6.0) x10^6/uL Hgb (14.0-18.0) g/dL Hct (40.0-52.0) % MCV (78.0-93.0) fL MCH (26.0-32.0) pg MCHC (32.0-36.0) g/dL RDW Coeff of Brooke (10.0-15.0) % Plt Count (130-400) x10^3/uL Neut % (Auto) (50.0-80.0) % Lymph % (Auto) (25.0-50.0) % [place] % (Auto) (2.0-11.0) % Eos % (Auto) (0.0-4.0) % Baso % (Auto) (0.2-1.2) % PT (9.5-12.3) SEC INR (2.0-3.5) APTT 23.7 L (25.6-32.8) SEC Sodium (136-145) mmol/L Potassium (3.5-5.1) mmol/L Chloride (98-107) mmol/L Carbon Dioxide (21-32) mmol/L Anion Gap (10-20) mmol/L BUN (7-18) mg/dL Creatinine (0.70-1.30) mg/dL Est Cr Clr Drug Dosing Estimated GFR (MDRD) Glucose (74-106) mg/dL Calcium (8.5-10.1) mg/dL Corrected Calcium (8.5-10.1) mg/dL Magnesium (1.8-2.4) mg/dL Total Bilirubin (0.2-1.0) mg/dL AST (15-37) U/L ALT (16-63) U/L Alkaline Phosphatase (46-116) U/L Troponin I < 0.017 (<=0.056) ng/mL C-Reactive Protein (<=0.9) mg/dL Total Protein (6.4-8.2) g/dL Albumin (3.4-5.0) g/dL Globulin Albumin/Globulin Ratio Urine Color (YELLOW) Urine Appearance (CLEAR) Urine pH (5.0-8.0) Ur Specific [place] Urine Protein (NEGATIVE) mg/dL Urine Glucose (UA) (NEGATIVE) mg/dL Urine Ketones (NEGATIVE) mg/dL Urine Occult Blood (NEGATIVE) Urine Nitrite (NEGATIVE) Urine Bilirubin (NEGATIVE) Urine Urobilinogen (0.2) EU/dL Ur Leukocyte Esterase (NEGATIVE) SARS CoV-2 RNA Rapid PEARL Negative (NEGATIVE) 01/20/20 Range/Units 12:08 WBC (4.0-10.0) x10^3/uL RBC (4.5-6.0) x10^6/uL Hgb (14.0-18.0) g/dL Hct (40.0-52.0) % MCV (78.0-93.0) fL MCH (26.0-32.0) pg MCHC (32.0-36.0) g/dL RDW Coeff of Brooke (10.0-15.0) % Plt Count (130-400) x10^3/uL Neut % (Auto) (50.0-80.0) % Lymph % (Auto) (25.0-50.0) % [place] % (Auto) (2.0-11.0) % Eos % (Auto) (0.0-4.0) % Baso % (Auto) (0.2-1.2) % PT (9.5-12.3) SEC INR (2.0-3.5) APTT (25.6-32.8) SEC Sodium (136-145) mmol/L Potassium (3.5-5.1) mmol/L Chloride (98-107) mmol/L Carbon Dioxide (21-32) mmol/L Anion Gap (10-20) mmol/L BUN (7-18) mg/dL Creatinine (0.70-1.30) mg/dL Est Cr Clr Drug Dosing Estimated GFR (MDRD) Glucose (74-106) mg/dL Calcium (8.5-10.1) mg/dL Corrected Calcium (8.5-10.1) mg/dL Magnesium (1.8-2.4) mg/dL Total Bilirubin (0.2-1.0) mg/dL AST (15-37) U/L ALT (16-63) U/L Alkaline Phosphatase (46-116) U/L Troponin I (<=0.056) ng/mL C-Reactive Protein (<=0.9) mg/dL Total Protein (6.4-8.2) g/dL Albumin (3.4-5.0) g/dL Globulin Albumin/Globulin Ratio Urine Color Yellow (YELLOW) Urine Appearance Clear (CLEAR) Urine pH 6.5 (5.0-8.0) Ur Specific [place] 1.020 Urine Protein Negative (NEGATIVE) mg/dL Urine Glucose (UA) Negative (NEGATIVE) mg/dL Urine Ketones Negative (NEGATIVE) mg/dL Urine Occult Blood Negative (NEGATIVE) Urine Nitrite Negative (NEGATIVE) Urine Bilirubin Negative (NEGATIVE) Urine Urobilinogen 0.2 (0.2) EU/dL Ur Leukocyte Esterase Negative (NEGATIVE) SARS CoV-2 RNA Rapid PEARL (NEGATIVE) Meds: Medications Discontinued Medications Generic Name Dose Route Start Last Admin Trade Name Freq PRN Reason Stop Dose Admin Sodium Chloride 500 mls @ 500 mls/hr 01/20/20 11:15 01/20/20 11:21 Normal Saline IV 500 mls/hr ASDIRECTED AG Administration - Radiology Interpretation Free Text/Narrative:: CT brain negative for acute pathology. Resolution of fungal lesions. Evidence of previous craniotomy. No active bleeding noted. Departure - Departure Time of Disposition: 12:47 Disposition: Home, Self-Care 01 Clinical Impression: Syncope - Discharge Information Instructions: Syncope, [id number] Referrals: Sanjuana Max MD [Primary Care Provider] - Forms: ED Department Discharge Additional Instructions: Home to rest. Increase intake of fluids today. Return to ER if you have any chest pain, shortness of breath, or other worrisome signs/symptoms. Recheck in clinic in 7-10 days. - Problem List Review Problem List Initiated/Reviewed/Updated: Yes - Assessment/Plan Plan: Home to rest. Increase intake of fluids today. Return to ER if you have any chest pain, shortness of breath, or other worrisome signs/symptoms. Recheck in clinic in 7-10 days.
[2020-01-20 11:38] LABS: ANION GAP 11.8 mmol/L (10-20); CHLORIDE,CL 106 mmol/L (98-107); SODIUM,NA 143 mmol/L (136-145)
== END 2020-01-20 12:47 | disposition home or self-care (01) ==
LOC: VM.ED 10:35
DX: R55 Syncope and collapse (principal); I10 Essential (primary) hypertension; J44.9 Chronic obstructive pulmonary disease, unspecified; E03.9 Hypothyroidism, unspecified; Z20.828 Contact with and (suspected) exposure to other viral communicable diseases; Z88.8 Allergy status to other drugs, medicaments and biological substances; Z79.899 Other long term (current) drug therapy
CPT/HCPCS: 36415; 70450; 80053; 81003; 83735; 84484; 85025; 85610; 85730; 86140; 93010; 99284; 99284-25; J7040; U0002

== ENCOUNTER 2020-12-24 08:24 | Observation (INO) | payer OTHER, MEDICARE, BC ==
[2020-12-24] MEDS ORDERED: Sodium Chloride 0.9% 10 ML Syringe FLUSH PRN (08:50)
--- NOTE | 2020-12-24 09:03 | EDM.PDOC ---
<Michael Mathis M - Last Filed: 12/24/20 10:24> ED HPI GENERAL MEDICAL PROBLEM - General Chief Complaint: Cardiovascular Problem Stated Complaint: cough Time Seen by Provider: 12/24/20 08:40 Source of Information: Reports: Patient, Family History Limitations: Reports: No Limitations - History of Present Illness INITIAL COMMENTS - FREE TEXT/NARRATIVE: Patient presents with complaints of cough, sore throat, headache, sob since last week Wednesday. Is vaccinated for COVID-19. History of a-fib. 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 Excessive bleeding. Hx of COPD. His states he has made some confused sorts of comments. No fever, chills. Primary doctor at the [facility] is Dr. Ventura. 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 - Related Data Allergies Allergy/AdvReac Type Severity Reaction Status Date / Time atorvastatin calcium Allergy Severe Hives Verified 05/23/17 14:40 [From Lipitor] rosuvastatin calcium Allergy Severe Difficulty Verified 05/23/17 14:40 [From Crestor] Breathing Home Meds: Home Meds Brimonidine Tartrate [Alphagan P] 1 drop EYEBOTH BID 05/24/15 [History] Calcium Carbonate/Vitamin D3 [Os-Ric 500+D] 1 tab PO BIDMEALS 05/24/15 [History] Ezetimibe [Zetia] 10 mg PO DAILY 05/24/15 [History] Ibrutinib [Imbruvica] 420 mg PO DAILY 05/24/15 [History] Levothyroxine Sodium [Synthroid] 175 mcg PO DAILY 05/24/15 [History] Multivitamin [Multi-Vitamin Daily] 1 each PO DAILY 05/24/15 [History] Omeprazole [Prilosec] 20 mg PO DAILY 05/24/15 [History] Acetaminophen [Tylenol] 650 mg PO Q4H PRN 05/19/17 [History] Amphotericin B Liposomal [Ambisome] 424 mg IV Q24H 05/19/17 [History] Cholecalciferol (Vitamin D3) [Vitamin D3] 1 tab PO DAILY 05/19/17 [History] Cyanocobalamin/Folic AC/Vit B6 [Folbee] 1 tab PO DAILY 05/19/17 [History] Dextrose 5 % in Water [Dextrose 5%-Water IV Soln] 10 - 15 ml IV Q24H 05/19/17 [History] Docusate Sodium [Colace] 100 mg PO BID 05/19/17 [History] Fluticasone/Vilanterol [Breo Ellipta 200-25 Mcg INH] 1 puff PO DAILY 05/19/17 [History] Heparin Sodium,Porcine/PF [Heparin IV Flush 100 Units/ml] 300 unit IV Q24H 05/19/17 [History] Sodium Chloride 0.9% [Saline Flush] 10 ml FLUSH ASDIRECTED PRN 05/19/17 [History] Past Medical History HEENT History: Reports: Cataract, Glaucoma Other HEENT History: Blepharitis bilat. Pinguecula L eye. Epistaxis Cardiovascular History: Reports: High Cholesterol, Hypertension Other Cardiovascular History: Tachycardia. Low HDL Respiratory History: Reports: COPD, Interstitial Lung Disease Other Respiratory History: Sleep related hypoxia Gastrointestinal History: Reports: Colon Polyp, PUD Other Gastrointestinal History: Abdominal lymphadenopathy Genitourinary History: Reports: Other (See Below) Musculoskeletal History: Reports: Osteoarthritis Other Musculoskeletal History: Closed FX of scapula Neurological History: Reports: Other (See Below) Other Neuro History: Essential tremor Endocrine/Metabolic History: Reports: Hypothyroidism Hematologic History: Reports: None Oncologic (Cancer) History: Reports: Basal Cell Carcinoma, Other (See Below) Other Oncologic History: CLL - Infectious Disease History Infectious Disease History: Reports: None - Past Surgical History Head Surgeries/Procedures: Reports: Craniotomy Cardiovascular Surgical History: Reports: None Respiratory Surgical History: Reports: None GI Surgical History: Reports: Colonoscopy, EGD, Polypectomy Other GI Surgeries/Procedures: EGD Endocrine Surgical History: Reports: None Neurological Surgical History: Reports: Other (See Below) Other Neurological Surgeries/Procedures: craniotomy Musculoskeletal Surgical History: Reports: None Social & Family History - Family History Family Medical History: No Pertinent Family History - Tobacco Use Tobacco Use Status *Q: Former Tobacco User Used Tobacco, but Quit: Yes Month/Year Tobacco Last Used: 10 years ago - Caffeine Use Caffeine Use: Reports: Coffee - Recreational Drug Use Recreational Drug Use: No ED ROS GENERAL - Review of Systems Review Of Systems: See Below Constitutional: Reports: Fatigue, Decreased Appetite HEENT: Reports: No Symptoms Respiratory: Reports: Shortness of Breath, Cough Cardiovascular: Reports: No Symptoms Endocrine: Reports: Fatigue GI/Abdominal: Reports: Diarrhea : Reports: No Symptoms Musculoskeletal: Reports: No Symptoms Skin: Reports: No Symptoms Neurological: Reports: Confusion Psychiatric: Reports: No Symptoms Hematologic/Lymphatic: Reports: No Symptoms Immunologic: Reports: No Symptoms ED EXAM, GENERAL - Physical Exam Exam: See Below Exam Limited By: No Limitations General Appearance: Alert, WD/WN, No Apparent Distress Ears: Normal External Exam, Normal Canal, Hearing Grossly Normal, Normal TMs Ear Exam: Bilateral Ear: Auricle Normal, Canal Normal, TM normal Nose: Normal Inspection, Normal Mucosa, No Blood Throat/Mouth: Normal Inspection, Normal Lips, Normal Teeth, Normal Gums, Normal Oropharynx, Normal Voice, No Airway Compromise Head: Atraumatic, Normocephalic Neck: Normal Inspection, Supple, Non-Tender, Full Range of Motion Respiratory/Chest: No Respiratory Distress, No Accessory Muscle Use, Chest Non- Tender, Rales Cardiovascular: Normal Peripheral Pulses, No Edema, No Gallop, No JVD, No Murmur, No Rub, Tachycardia, Irregularly Irregular GI/Abdominal: Normal Bowel Sounds, Soft, Non-Tender, No Organomegaly, No Distention, No Abnormal Bruit, No Mass Back Exam: Normal Inspection, Full Range of Motion, NT Extremities: Normal Inspection, Normal Range of Motion, Non-Tender, Normal Capillary Refill, No Pedal Edema Neurological: Alert, Oriented, CN II-XII Intact, Normal Cognition, Normal Gait, Normal Reflexes, No Motor/Sensory Deficits Psychiatric: Normal Affect, Normal Mood Skin Exam: Warm, Dry, Intact, Normal Color, No Rash Lymphatic: No Adenopathy #1 Interpretation EKG Date: 12/24/20 Time: 08:21 Rhythm: A-Fib Rate (Beats/Min): 126 Elkins: LAD-Left Elkins Deviation P-Wave: Absent QRS: Normal ST-T: Normal QT: Normal Departure - Departure Disposition: Refer to Observation Clinical Impression: CAP (community acquired pneumonia), Atrial fibrillation with rapid ventricular response Sepsis Event Note (ED) - Evaluation Sepsis Screening Result: No Definite Risk <Elvis Norris - Last Filed: 12/24/20 12:47> ED HPI GENERAL MEDICAL PROBLEM - History of Present Illness INITIAL COMMENTS - FREE TEXT/NARRATIVE: Pt. care assumed by Elvis Norris at change of shift at 10AM: Pt. states that his atrial fib is intermittent. He is not currently on any medications for rate control. He has chronic thrombocytopenia due to his CLL, precluding use of anticoagulants. Pt. denies any chest pain. No significant shortness of breath unless he is walking, which causes him to cough. Denies any lightheadedness. No current diarrhea, nausea, or vomiting. He denies any abdominal pain. No rashes. Onset Date: 12/20/20 Onset Time: 12:26 Severity: Mild Associated Symptoms: Reports: Cough, cough w sputum, Shortness of Breath. Denies: Diaphoresis Course - Vital Signs Last Recorded V/S: Last Vital Signs Temp 36.8 C 12/24/20 08:30 Pulse 96 12/24/20 11:42 Resp 29 H 12/24/20 09:45 BP 138/95 H 12/24/20 11:42 Pulse Ox 91 L 12/24/20 09:45 - Orders/Labs/Meds Orders: Active Orders 24 hr Category Date Time Status Patient Status [ADT] Routine ADT 12/24/20 11:24 Active CULTURE BLOOD [BC] Stat Lab 12/24/20 10:16 Received CULTURE BLOOD [BC] Stat Lab 12/24/20 10:23 Received CULTURE URINE [RM] Stat Lab 12/24/20 09:43 Received Doxycycline [Vibramycin] Med 12/24/20 11:30 Active 100 mg PO BID Metoprolol Tartrate [Lopressor] Med 12/24/20 11:45 Active 50 mg PO BID Sodium Chloride 0.9% [Saline Flush] Med 12/24/20 08:50 Active 10 ml FLUSH ASDIRECTED PRN Blood Culture x2 Reflex Set [OM.PC] Stat Oth 12/24/20 10:00 Ordered Saline Lock Insert [OM.PC] Routine Oth 12/24/20 08:50 Ordered Medication Orders Doxycycline Hyclate (Doxycycline 100 Mg Cap) 100 mg PO BID [facility] Last Admin: 12/24/20 11:35 Dose: 100 mg Documented by: [id number] Sodium Chloride (Normal Saline) 1,000 mls @ 150 mls/hr IV ASDIRECTED [facility] Metoprolol Tartrate (Metoprolol Tartrate 50 Mg Tab) 50 mg PO BID [facility] Last Admin: 12/24/20 11:42 Dose: 50 mg Documented by: [id number] Sodium Chloride (Sodium Chloride 0.9% 10 Ml Syringe) 10 ml FLUSH ASDIRECTED PRN PRN Reason: Keep Vein Open Labs: Laboratory Tests 12/24/20 12/24/20 12/24/20 Range/Units 08:33 09:06 09:06 WBC 9.2 (4.0-10.0) x10^3/uL RBC 5.30 (4.5-6.0) x10^6/uL Hgb 14.2 (14.0-18.0) g/dL Hct 43.8 (40.0-52.0) % MCV 82.6 (78.0-93.0) fL MCH 26.8 (26.0-32.0) pg MCHC 32.4 (32.0-36.0) g/dL RDW Coeff of Brooke 16.6 H (10.0-15.0) % Plt Count 77 L (130-400) x10^3/uL Immature Gran % (Auto) 0.20 (0.00-0.43) % Neut % (Auto) 80.6 H (50.0-80.0) % Lymph % (Auto) 8.1 L (25.0-50.0) % Frontier % (Auto) 10.7 (2.0-11.0) % Eos % (Auto) 0.0 (0.0-4.0) % Baso % (Auto) 0.4 (0.2-1.2) % Neut # (Auto) 7.4 (1.8-7.7) x10^3/uL Lymph # (Auto) 0.8 L (1.0-4.8) x10^3/uL Frontier # (Auto) 1.0 H (0.0-0.8) x10^3/uL Eos # (Auto) 0.0 (0.0-0.5) x10^3/uL Baso # (Auto) 0.0 (0.0-0.2) x10^3/uL Immature Gran # (Auto) 0.02 (0.00-0.07) x10^3/uL PT (9.9-12.5) SEC INR (2.0-3.5) APTT (25.6-32.8) SEC D-Dimer, Quantitative 1.03 H (<=0.58) mg/LFEU VBG pH (7.33-7.43) pH VBG pCO2 (41-51) mmHG VBG pO2 mmHG VBG HCO3 (22-29) mmol/L VBG Total CO2 (23-30) mmol/L VBG O2 Saturation % VBG Base Excess ((-2)-3) mmol/L Sodium (136-145) mmol/L Potassium (3.5-5.1) mmol/L Chloride (98-107) mmol/L Carbon Dioxide (21-32) mmol/L Anion Gap (5-15) mmol/L BUN (7-18) mg/dL Creatinine (0.70-1.30) mg/dL Est Cr Clr Drug Dosing Estimated GFR (MDRD) Glucose (70-99) mg/dL Lactic Acid (0.4-2.0) mmol/L Calcium (8.5-10.1) mg/dL Corrected Calcium (8.5-10.1) mg/dL Magnesium (1.8-2.4) mg/dL Total Bilirubin (0.2-1.0) mg/dL AST (15-37) U/L ALT (16-63) U/L Alkaline Phosphatase (46-116) U/L Troponin I High Sens (<=76) ng/L NT-Pro-B Natriuret Pep (<=450) pg/mL Total Protein (6.4-8.2) g/dL Albumin (3.4-5.0) g/dL Globulin Albumin/Globulin Ratio Procalcitonin (0.1-0.50) ng/mL Urine Color (YELLOW) Urine Appearance (CLEAR) Urine pH (5.0-8.0) Ur Specific [place] Urine Protein (NEGATIVE) mg/dL Urine Glucose (UA) (NEGATIVE) mg/dL Urine Ketones (NEGATIVE) mg/dL Urine Occult Blood (NEGATIVE) Urine Nitrite (NEGATIVE) Urine Bilirubin (NEGATIVE) Urine Urobilinogen (0.2) EU/dL Ur Leukocyte Esterase (NEGATIVE) Urine RBC (NOT SEEN) /HPF Urine WBC (NOT SEEN) /HPF Ur Squamous Epith Cells (NOT SEEN) /HPF Urine Bacteria (NOT SEEN) /HPF Urine Mucus (NOT SEEN) /LPF Influenza Type A RNA Negative (NEGATIVE) RSV RNA (INAAT) Negative (NEGATIVE) Influenza Type B RNA Negative (NEGATIVE) SARS-CoV-2 RNA (PEARL) Negative (NEGATIVE) 12/24/20 12/24/2012/24/21 Range/Units 09:06 09:06 09:06 WBC (4.0-10.0) x10^3/uL RBC (4.5-6.0) x10^6/uL Hgb (14.0-18.0) g/dL Hct (40.0-52.0) % MCV (78.0-93.0) fL MCH (26.0-32.0) pg MCHC (32.0-36.0) g/dL RDW Coeff of Brooke (10.0-15.0) % Plt Count (130-400) x10^3/uL Immature Gran % (Auto) (0.00-0.43) % Neut % (Auto) (50.0-80.0) % Lymph % (Auto) (25.0-50.0) % Frontier % (Auto) (2.0-11.0) % Eos % (Auto) (0.0-4.0) % Baso % (Auto) (0.2-1.2) % Neut # (Auto) (1.8-7.7) x10^3/uL Lymph # (Auto) (1.0-4.8) x10^3/uL Frontier # (Auto) (0.0-0.8) x10^3/uL Eos # (Auto) (0.0-0.5) x10^3/uL Baso # (Auto) (0.0-0.2) x10^3/uL Immature Gran # (Auto) (0.00-0.07) x10^3/uL PT 11.3 (9.9-12.5) SEC INR 1.0 L (2.0-3.5) APTT 26.1 (25.6-32.8) SEC D-Dimer, Quantitative (<=0.58) mg/LFEU VBG pH (7.33-7.43) pH VBG pCO2 (41-51) mmHG VBG pO2 mmHG VBG HCO3 (22-29) mmol/L VBG Total CO2 (23-30) mmol/L VBG O2 Saturation % VBG Base Excess ((-2)-3) mmol/L Sodium 140 (136-145) mmol/L Potassium 3.9 (3.5-5.1) mmol/L Chloride 106 (98-107) mmol/L Carbon Dioxide 26 (21-32) mmol/L Anion Gap 11.9 (5-15) mmol/L BUN 30 H (7-18) mg/dL Creatinine 1.8 H (0.70-1.30) mg/dL Est Cr Clr Drug Dosing TNP Estimated GFR (MDRD) 37 Glucose 94 (70-99) mg/dL Lactic Acid 1.2 (0.4-2.0) mmol/L Calcium 9.1 (8.5-10.1) mg/dL Corrected Calcium 9.9 (8.5-10.1) mg/dL Magnesium 1.5 L (1.8-2.4) mg/dL Total Bilirubin 0.9 (0.2-1.0) mg/dL AST 25 (15-37) U/L ALT 24 (16-63) U/L Alkaline Phosphatase 86 (46-116) U/L Troponin I High Sens 15 (<=76) ng/L NT-Pro-B Natriuret Pep 1400 H (<=450) pg/mL Total Protein 6.0 L (6.4-8.2) g/dL Albumin 3.0 L (3.4-5.0) g/dL Globulin 3.0 Albumin/Globulin Ratio 1.00 Procalcitonin (0.1-0.50) ng/mL Urine Color (YELLOW) Urine Appearance (CLEAR) Urine pH (5.0-8.0) Ur Specific [place] Urine Protein (NEGATIVE) mg/dL Urine Glucose (UA) (NEGATIVE) mg/dL Urine Ketones (NEGATIVE) mg/dL Urine Occult Blood (NEGATIVE) Urine Nitrite (NEGATIVE) Urine Bilirubin (NEGATIVE) Urine Urobilinogen (0.2) EU/dL Ur Leukocyte Esterase (NEGATIVE) Urine RBC (NOT SEEN) /HPF Urine WBC (NOT SEEN) /HPF Ur Squamous Epith Cells (NOT SEEN) /HPF Urine Bacteria (NOT SEEN) /HPF Urine Mucus (NOT SEEN) /LPF Influenza Type A RNA (NEGATIVE) RSV RNA (INAAT) (NEGATIVE) Influenza Type B RNA (NEGATIVE) SARS-CoV-2 RNA (PEARL) (NEGATIVE) 12/24/20 12/24/20 12/24/20 Range/Units 09:06 09:43 10:30 WBC (4.0-10.0) x10^3/uL RBC (4.5-6.0) x10^6/uL Hgb (14.0-18.0) g/dL Hct (40.0-52.0) % MCV (78.0-93.0) fL MCH (26.0-32.0) pg MCHC (32.0-36.0) g/dL RDW Coeff of Brooke (10.0-15.0) % Plt Count (130-400) x10^3/uL Immature Gran % (Auto) (0.00-0.43) % Neut % (Auto) (50.0-80.0) % Lymph % (Auto) (25.0-50.0) % Frontier % (Auto) (2.0-11.0) % Eos % (Auto) (0.0-4.0) % Baso % (Auto) (0.2-1.2) % Neut # (Auto) (1.8-7.7) x10^3/uL Lymph # (Auto) (1.0-4.8) x10^3/uL Frontier # (Auto) (0.0-0.8) x10^3/uL Eos # (Auto) (0.0-0.5) x10^3/uL Baso # (Auto) (0.0-0.2) x10^3/uL Immature Gran # (Auto) (0.00-0.07) x10^3/uL PT (9.9-12.5) SEC INR (2.0-3.5) APTT (25.6-32.8) SEC D-Dimer, Quantitative (<=0.58) mg/LFEU VBG pH 7.46 H (7.33-7.43) pH VBG pCO2 29 L (41-51) mmHG VBG pO2 67 mmHG VBG HCO3 21 L (22-29) mmol/L VBG Total CO2 21 L (23-30) mmol/L VBG O2 Saturation 95 % VBG Base Excess -3 L ((-2)-3) mmol/L Sodium (136-145) mmol/L Potassium (3.5-5.1) mmol/L Chloride (98-107) mmol/L Carbon Dioxide (21-32) mmol/L Anion Gap (5-15) mmol/L BUN (7-18) mg/dL Creatinine (0.70-1.30) mg/dL Est Cr Clr Drug Dosing Estimated GFR (MDRD) Glucose (70-99) mg/dL Lactic Acid (0.4-2.0) mmol/L Calcium (8.5-10.1) mg/dL Corrected Calcium (8.5-10.1) mg/dL Magnesium (1.8-2.4) mg/dL Total Bilirubin (0.2-1.0) mg/dL AST (15-37) U/L ALT (16-63) U/L Alkaline Phosphatase (46-116) U/L Troponin I High Sens (<=76) ng/L NT-Pro-B Natriuret Pep (<=450) pg/mL Total Protein (6.4-8.2) g/dL Albumin (3.4-5.0) g/dL Globulin Albumin/Globulin Ratio Procalcitonin <0.05 L (0.1-0.50) ng/mL Urine Color Yellow (YELLOW) Urine Appearance Slightly cloudy H (CLEAR) Urine pH 6.0 (5.0-8.0) Ur Specific [place] 1.025 Urine Protein 30 H (NEGATIVE) mg/dL Urine Glucose (UA) Negative (NEGATIVE) mg/dL Urine Ketones Trace H (NEGATIVE) mg/dL Urine Occult Blood Negative (NEGATIVE) Urine Nitrite Negative (NEGATIVE) Urine Bilirubin Small H (NEGATIVE) Urine Urobilinogen 0.2 (0.2) EU/dL Ur Leukocyte Esterase Trace H (NEGATIVE) Urine RBC 0-5 (NOT SEEN) /HPF Urine WBC 0-5 (NOT SEEN) /HPF Ur Squamous Epith Cells Few H (NOT SEEN) /HPF Urine Bacteria Rare (NOT SEEN) /HPF Urine Mucus Moderate H (NOT SEEN) /LPF Influenza Type A RNA (NEGATIVE) RSV RNA (INAAT) (NEGATIVE) Influenza Type B RNA (NEGATIVE) SARS-CoV-2 RNA (PEARL) (NEGATIVE) Meds: Medications Generic Name Dose Route Start Last Admin Trade Name Freq PRN Reason Stop Dose Admin Doxycycline Hyclate 100 mg 12/24/20 11:30 12/24/20 11:35 Doxycycline 100 Mg Cap PO 100 mg BID AG Administration Sodium Chloride 1,000 mls @ 150 mls/hr 12/24/20 12:15 Normal Saline IV ASDIRECTED AG Metoprolol Tartrate 50 mg 12/24/20 11:45 12/24/20 11:42 Metoprolol Tartrate 50 Mg Tab PO 50 mg BID AG Administration Sodium Chloride 10 ml 12/24/20 08:50 Sodium Chloride 0.9% 10 Ml Syringe FLUSH ASDIRECTED PRN Keep Vein Open Discontinued Medications Generic Name Dose Route Start Last Admin Trade Name Frejen PRN Reason Stop Dose Admin Ceftriaxone Sodium 2 gm 12/24/20 11:12 12/24/20 11:35 Ceftriaxone 2 Gm Vial IVPUSH 12/24/20 11:13 2 gm STAT ONE Administration Furosemide 20 mg 12/24/20 10:10 12/24/20 11:35 Furosemide 20 Mg/2 Ml Vial IV 12/24/20 10:11 20 mg ONETIME ONE Administration Magnesium Chloride 64 mg 12/24/20 10:01 12/24/20 11:35 Magnesium Chloride 64 Mg Tab.Er PO 12/24/20 10:02 64 mg ONETIME ONE Administration Metoprolol Tartrate 5 mg 12/24/20 09:20 12/24/20 09:26 Metoprolol Tartrate 5 Mg/5 Ml Sdv IVPUSH 12/24/20 09:21 5 mg ONETIME ONE Administration - Radiology Interpretation Free Text/Narrative:: bilateral lower lobe opacification. - Re-Assessments/Exams Free Text/Narrative Re-Assessment/Exam: 12/24/20 12:29 Pt. was started on rocephin 2gm IV and doxycycline 100mg PO. He was given IV lopressor 5mg by Michael Mathis for rate control. Rate decreased from 120s to 80- 90. He was started on oral metoprolol tartrate 50mg twice daily. He was also started on magnesium supplementation. Pt. d dimer was very mildly elevated. He denies any hemoptysis, shortness of breath, and his not hypoxic or tachycardic. No CT scan was performed at this time, as he is not symptomatic for PE, d dimer is very low, and risks of injury to kidneys from contrast outweigh benefit of CT. Also, there is no CT availability in this facility at this time. 12/24/20 12:46 Departure - Departure Time of Disposition: 12:38 Sepsis Event Note (ED) - Focused Exam Vital Signs: Vital Signs Temp Pulse Pulse Resp BP BP Pulse Ox 12/24/20 11:42 96 138/95 H 12/24/20 09:45 95 29 H 114/84 91 L 12/24/20 09:26 108 H 135/80 12/24/20 08:30 36.8 C 125 H 19 144/96 H 92 L - Problem List Review Problem List Initiated/Reviewed/Updated: Yes - My Orders Last 24 Hours: My Active Orders 12/24/20 11:24 Patient Status [ADT] Routine 12/24/20 11:30 Doxycycline [Vibramycin] 100 mg PO BID 12/24/20 11:45 Metoprolol Tartrate [Lopressor] 50 mg PO BID - Assessment/Plan Last 24 Hours: My Active Orders 12/24/20 11:24 Patient Status [ADT] Routine 12/24/20 11:30 Doxycycline [Vibramycin] 100 mg PO BID 12/24/20 11:45 Metoprolol Tartrate [Lopressor] 50 mg PO BID Plan: Pt. will be admitted observation. He will be on telemetry. He is a code 1. Start NS at 150ml/hr. He will be judiciously hydrated, given his history of CHF and CKD. Rocephin 2 gm IV every day. Doxycycline 100mg twice daily. He was started on oral metoprolol tartrate for rate control. He may not need this permanently, RVR may be exacerbated by the pneumonia.
[2020-12-24] MEDS ORDERED: Metoprolol Tartrate 5 MG/5 ML SDV IVPUSH ONE (09:20)
[2020-12-24 09:28] LABS: CORONAVIRUS COVID-19 NAA NEGATIVE (NEGATIVE)
[2020-12-24 09:29] LABS: RESPIRATORY SYNCYTIAL VIR NAA NEGATIVE (NEGATIVE)
--- NOTE | 2020-12-24 09:29 | CR ---
[id number] RAD/RAD Chest PA or AP 1V EXAM: RAD Chest PA or AP 1V INDICATION: SHORT OF BREATH. COMPARISON: March 2017. DISCUSSION/IMPRESSION: Cardiomegaly and central vascular congestion. Low lung volumes result in bibasilar vascular crowding/atelectasis. Mild bilateral lower lobe predominant interlobular septal thickening suggesting possible early changes of interstitial pulmonary edema versus interstitial pneumonitis. No visible pleural effusion. No pneumothorax. Roberto Trejo MD 12/24/20 0928 Thank you for allowing us to participate in the care of your patient.
[2020-12-24 09:35] LABS: PTT,PARTIAL THROMBOPLSTIN TIME 26.1 SEC (25.6-32.8)
[2020-12-24 09:40] LABS: CHLORIDE,CL 106 mmol/L (98-107); SODIUM,NA 140 mmol/L (136-145)
[2020-12-24 09:51] LABS: ANION GAP 11.9 mmol/L (5-15)
[2020-12-24] MEDS ORDERED: Magnesium Chloride 64 MG Tab.ER PO ONE (10:01)
[2020-12-24] MEDS ORDERED: Furosemide 20 MG/2 ML VIAL IV ONE (10:10)
[2020-12-24 10:42] LABS: BASE EXCESS VENOUS -3 mmol/L ((-2)-3); BICARBONATE,VENOUS 21 mmol/L (22-29); O2 SATURATION VENOUS 95 %; PCO2 VENOUS 29 mmHG (41-51); PH,VENOUS 7.46 pH (7.33-7.43); PO2 VENOUS 67 mmHG
[2020-12-24] MEDS ORDERED: cefTRIAXone 2 GM Vial IVPUSH ONE (11:12)
[2020-12-24] MEDS ORDERED: Doxycycline 100 MG Cap PO SCH (11:30)
[2020-12-24] MEDS ORDERED: Metoprolol Tartrate 50 MG Tab PO SCH (11:45)
[2020-12-24] MEDS: Sodium Chloride 0.9% 1,000 ML IV SCH ×2 (12:25→20:01)
[2020-12-24] MEDS ORDERED: Acetaminophen 325 MG Tab PO PRN (16:00)
[2020-12-24] MEDS: Calcium Carbonate/Vitamin D3 1250 MG-5 MCG Tab PO SCH (18:48)
[2020-12-24] MEDS: Doxycycline 100 MG Cap PO SCH (19:42)
[2020-12-24] MEDS: Magnesium Oxide 400 MG Tab PO SCH (19:42)
[2020-12-24] MEDS: BRIMONIDINE TARTRATE EYEBOTH SCH (19:44)
[2020-12-24] MEDS: SALMETEROL PO SCH (19:45)
[2020-12-24] MEDS: FLUTICASONE PO SCH (19:45)
[2020-12-24] MEDS: Docusate Sodium 100 MG Cap PO SCH (19:47)
[2020-12-24] MEDS ORDERED: LATANOPROST EYEBOTH SCH (20:00)
[2020-12-24] MEDS ORDERED: [UNRECOGNIZED DRUG - OTHER] EYEBOTH SCH (20:00)
[2020-12-25] MEDS: Sodium Chloride 0.9% 1,000 ML IV SCH (02:56)
[2020-12-25] MEDS ORDERED: FOLIC AC PO SCH (08:00)
[2020-12-25] MEDS ORDERED: Omeprazole 20 MG Cap.CR PO SCH (08:00)
[2020-12-25] MEDS ORDERED: Multivitamins with Iron/Calcium/Folic Acid/Minerals Tab PO SCH (08:00)
[2020-12-25] MEDS ORDERED: VIT B6 PO SCH (08:00)
[2020-12-25] MEDS ORDERED: Cholecalciferol (Vitamin D3) 25 MCG Tab PO SCH (08:00)
[2020-12-25] MEDS ORDERED: CYANOCOBALAMIN PO SCH (08:00)
[2020-12-25] MEDS: Magnesium Oxide 400 MG Tab PO SCH (08:06)
[2020-12-25] MEDS: Doxycycline 100 MG Cap PO SCH (08:07)
[2020-12-25] MEDS: Calcium Carbonate/Vitamin D3 1250 MG-5 MCG Tab PO SCH (08:07)
[2020-12-25] MEDS: Docusate Sodium 100 MG Cap PO SCH (08:07)
[2020-12-25] MEDS: SALMETEROL PO SCH (08:08)
[2020-12-25] MEDS: BRIMONIDINE TARTRATE EYEBOTH SCH (08:08)
[2020-12-25] MEDS: FLUTICASONE PO SCH (08:08)
[2020-12-25] MEDS ORDERED: LEVOTHYROXINE 175 MCG PO SCH (08:30)
[2020-12-25] MEDS ORDERED: FLUCONAZOLE 200 MG PO SCH (08:30)
[2020-12-25] MEDS ORDERED: Furosemide 20 MG Tab PO SCH (08:30)
[2020-12-25] MEDS ORDERED: IBRUTINIB 280 MG PO SCH (08:45)
[2020-12-25 10:06] VITALS: BP 110/73; PULSE 84
[2020-12-25] MEDS ORDERED: cefTRIAXone 2 GM Vial IVPUSH SCH (12:00)
--- NOTE | 2020-12-25 12:20 | PCM.PN ---
- General Info Date of Service: 12/25/20 Subjective Update: Patient feeling much better and anxious to go home. Reports he feels well enough to go home. - Review of Systems General: Reports: No Symptoms HEENT: Reports: No Symptoms Pulmonary: Reports: No Symptoms Cardiovascular: Reports: No Symptoms Gastrointestinal: Reports: No Symptoms Genitourinary: Reports: No Symptoms Musculoskeletal: Reports: No Symptoms Skin: Reports: No Symptoms Neurological: Reports: No Symptoms Psychiatric: Reports: No Symptoms - Patient Data Vitals - Most Recent: Last Vital Signs Temp 37.0 C 12/25/20 10:00 Pulse 84 12/25/20 10:00 Resp 24 H 12/25/20 10:00 BP 110/73 12/25/20 10:00 Pulse Ox 95 12/25/20 10:00 Weight - Most Recent: 83.688 kg I&O - Last 24 Hours: Intake & Output 12/24/20 12/25/20 12/25/20 22:59 06:59 14:59 Intake Total 629 400 366 Balance 629 400 366 Lab Results Last 24 Hours: Laboratory Results - last 24 hr 12/24/20 Range/Units 16:03 Lactic Acid 1.7 (0.4-2.0) mmol/L Yuniel Results Last 24 Hours: Microbiology 12/24/20 10:23 Aerobic Blood Culture - Preliminary Blood - Venous - Lab Draw NO GROWTH AFTER 1 DAY Anaerobic Blood Culture - Preliminary NO GROWTH AFTER 1 DAY 12/24/20 10:16 Aerobic Blood Culture - Preliminary Blood - Venous NO GROWTH AFTER 1 DAY Anaerobic Blood Culture - Preliminary NO GROWTH AFTER 1 DAY 12/24/20 09:43 Urine Culture - Preliminary Urine, Clean Catch NO GROWTH AFTER 1 DAY Med Orders - Current: Current Medications Acetaminophen (Acetaminophen 325 Mg Tab) 650 mg PO Q4H PRN PRN Reason: Pain (mild 1-3) Calcium Carbonate (Calcium Carbonate/Vitamin D3 1250 Mg-5 Mcg Tab) 1 tab PO BIDMEALS [facility] Last Admin: 12/25/20 08:07 Dose: 1 tab Documented by: Ceftriaxone Sodium (Ceftriaxone 2 Gm Vial) 2 gm IVPUSH DAILY@1200 AG Cholecalciferol (Cholecalciferol (Vitamin D3) 25 Mcg Tab) 50 mcg PO DAILY [facility] Last Admin: 12/25/20 08:06 Dose: 50 mcg Documented by: Docusate Sodium (Docusate Sodium 100 Mg Cap) 100 mg PO BID [facility] Last Admin: 12/25/20 08:07 Dose: Not Given Documented by: Doxycycline Hyclate (Doxycycline 100 Mg Cap) 100 mg PO BID [facility] Last Admin: 12/25/20 08:07 Dose: 100 mg Documented by: Furosemide (Furosemide 20 Mg Tab) 20 mg PO DAILY [facility] Last Admin: 12/25/20 09:32 Dose: 20 mg Documented by: Sodium Chloride (Normal Saline) 1,000 mls @ 150 mls/hr IV ASDIRECTED [facility] Last Admin: 12/25/20 02:56 Dose: 150 mls/hr Documented by: Levothyroxine Sodium (Levothyroxine 175 Mcg Tab (Own Supply)) 175 mcg PO DAILY [facility] Last Admin: 12/25/20 09:31 Dose: 175 mcg Documented by: Magnesium Oxide (Magnesium Oxide 400 Mg Tab) 400 mg PO BID [facility] Last Admin: 12/25/20 08:06 Dose: 400 mg Documented by: Multivitamins/Minerals (Multivitamins With Iron/Calcium/Folic Acid/Minerals Tab) 1 tab PO DAILY [facility] Last Admin: 12/25/20 08:06 Dose: 1 tab Documented by: Brimonidine Tartrate ([Alphagan P 0.1%]) 1 drop EYEBOTH BID [facility] Last Admin: 12/25/20 08:08 Dose: 1 drop Documented by: Clindamycin Phosphate Lotion ( Own Supply) 1 applic TOP BID [facility] Fluconazole [ Diflucan] 200 Mg Tablet (Own Supply) 0 mg PO DAILY [facility] Last Admin: 12/25/20 09:31 Dose: 200 mg Documented by: Fluticasone Propion/Salmeterol Advair Hfa 230-21 Mcg Inh 1 inh PO Q12H [facility] Last Admin: 12/25/20 08:08 Dose: 1 inh Documented by: Ibrutinib [Imbruvica ] 280 Mg Tablet (( Own Supply) 0 mg PO DAILY [facility] Last Admin: 12/25/20 09:32 Dose: 280 mg Documented by: Latanoprost Xalatan (0.005%) 1 drop EYEBOTH BEDTIME [facility] Last Admin: 12/24/20 19:43 Dose: 1 drop Documented by: Omeprazole (Omeprazole 20 Mg Cap.Cr) 20 mg PO DAILY [facility] Last Admin: 12/25/20 08:06 Dose: 20 mg Documented by: Potassium Chloride (Potassium Chloride 20 Meq Tab.Er (Own Supply)) 10 meq PO SUTUTHSA@0800 [facility] Sodium Chloride (Sodium Chloride 0.9% 10 Ml Syringe) 10 ml FLUSH ASDIRECTED PRN PRN Reason: Keep Vein Open Discontinued Medications Ceftriaxone Sodium (Ceftriaxone 2 Gm Vial) 2 gm IVPUSH STAT ONE Stop: 12/24/20 11:13 Last Admin: 12/24/20 11:35 Dose: 2 gm Documented by: Doxycycline Hyclate (Doxycycline 100 Mg Cap) 100 mg PO BID [facility] Last Admin: 12/24/20 11:35 Dose: 100 mg Documented by: Furosemide (Furosemide 20 Mg/2 Ml Vial) 20 mg IV ONETIME ONE Stop: 12/24/20 10:11 Last Admin: 12/24/20 11:35 Dose: 20 mg Documented by: Magnesium Chloride (Magnesium Chloride 64 Mg Tab.Er) 64 mg PO ONETIME ONE Stop: 12/24/20 10:02 Last Admin: 12/24/20 11:35 Dose: 64 mg Documented by: Metoprolol Tartrate (Metoprolol Tartrate 5 Mg/5 Ml Sdv) 5 mg IVPUSH ONETIME ONE Stop: 12/24/20 09:21 Last Admin: 12/24/20 09:26 Dose: 5 mg Documented by: Metoprolol Tartrate (Metoprolol Tartrate 50 Mg Tab) 50 mg PO BID [facility] Last Admin: 12/24/20 11:42 Dose: 50 mg Documented by: - Exam General: Alert, Oriented, No Acute Distress HEENT: Mucous Membr. Moist/[place] Neck: Supple Lungs: Clear to Auscultation, Normal Respiratory Effort, Other (Scattered coarseness) Cardiovascular: Regular Rate, No Murmurs, Irregular Rhythm GI/Abdominal Exam: Normal Bowel Sounds, Soft (Male) Exam: Deferred Back Exam: Normal Inspection Extremities: Normal Inspection, Normal Range of Motion, No Pedal Edema, Normal Capillary Refill Skin: Warm, Dry, Intact Wound/Incisions: Healing Well Neurological: No New Focal Deficit Psy/Mental Status: Alert, Normal Affect, Normal Mood - Patient Data Lab Results Last 24 hrs: Laboratory Results - last 24 hr 12/24/20 Range/Units 16:03 Lactic Acid 1.7 (0.4-2.0) mmol/L Result Diagrams: 12/24/20 09:06 12/24/20 09:06 Yuniel Results Last 24 hrs: Microbiology 12/24/20 10:23 Aerobic Blood Culture - Preliminary Blood - Venous - Lab Draw NO GROWTH AFTER 1 DAY Anaerobic Blood Culture - Preliminary NO GROWTH AFTER 1 DAY 12/24/20 10:16 Aerobic Blood Culture - Preliminary Blood - Venous NO GROWTH AFTER 1 DAY Anaerobic Blood Culture - Preliminary NO GROWTH AFTER 1 DAY 12/24/20 09:43 Urine Culture - Preliminary Urine, Clean Catch NO GROWTH AFTER 1 DAY Sepsis Event Note - Evaluation Sepsis Screening Result: No Definite Risk - Focused Exam Vital Signs: Vital Signs Temp Pulse Resp BP BP Pulse Ox 12/25/20 10:00 37.0 C 84 24 H 110/73 95 12/25/20 06:00 35.9 C L 82 22 H 131/86 94 L 12/25/20 02:00 36.3 C 93 18 136/77 95 - Problem List & Annotations (1) CAP (community acquired pneumonia) SNOMED Code(s): 154374735 Code(s): J18.9 - PNEUMONIA, UNSPECIFIED ORGANISM Status: Acute Current Visit: Yes Annotation/Comment:: Has been receiving Ceftriaxone 2gm IVPB and Doxycycline 100mg po BID, will continue the Doxycylcine for 10 days. No fever, SOB resolved. (2) Atrial fibrillation with RVR SNOMED Code(s): 850349447022064 Code(s): I48.91 - UNSPECIFIED ATRIAL FIBRILLATION Status: Acute Current Visit: Yes Annotation/Comment:: Has not been on any meds for reate control, started on Metoprolol which seems to have decreased the rate. No currently a candidate for anticoagulation. Will continue the Metoprolo and have patient follow up with his [facility] provider following discharge. (3) COPD (chronic obstructive pulmonary disease) SNOMED Code(s): 15001534 Code(s): J44.9 - CHRONIC OBSTRUCTIVE PULMONARY DISEASE, UNSPECIFIED Status: Acute Current Visit: No Qualifiers: COPD type: COPD with acute exacerbation Qualified Code(s): J44.1 - Chronic obstructive pulmonary disease with (acute) exacerbation Annotation/Comment:: Hx of COPD, CXR could represent pulmonary fluid overload, but he is currently onm Lasix 20mg po qd. - Problem List Review Problem List Initiated/Reviewed/Updated: Yes - Plan Plan:: -Discharge to home today. See orders.
--- NOTE | 2020-12-25 12:29 | PCM.DCSUM1 ---
Discharge Summary - Hospital Course HPI Initial Comments: Evaristo is a 75 y/o male who had presented to the ER with SOB. He does have a history of COPD and also A Fib with RVR. He was diagnosed with an early pneumonia. Brief History: He received Metoprolol IV that improved his rate and then was started on Metoprolol 50mg po BID since he was not anything. - Discharge Data Discharge Date: 12/25/20 Discharge Disposition: Home, Self-Care 01 Condition: Fair - Referral to Home Health Primary Care Physician: PCP Not In Area - Discharge Diagnosis/Problem(s) (1) CAP (community acquired pneumonia) SNOMED Code(s): 829435308 ICD Code: J18.9 - PNEUMONIA, UNSPECIFIED ORGANISM Status: Acute Current Visit: Yes Problem Details: Has been receiving Ceftriaxone 2gm IVPB and Doxycycline 100mg po BID, will continue the Doxycylcine for 10 days. No fever, SOB resolved. (2) Atrial fibrillation with RVR SNOMED Code(s): 641309380101954 ICD Code: I48.91 - UNSPECIFIED ATRIAL FIBRILLATION Status: Acute Current Visit: Yes Problem Details: Has not been on any meds for reate control, started on Metoprolol which seems to have decreased the rate. No currently a candidate for anticoagulation. Will continue the Metoprolo and have patient follow up with his [facility] provider following discharge. (3) COPD (chronic obstructive pulmonary disease) SNOMED Code(s): 40778400 ICD Code: J44.9 - CHRONIC OBSTRUCTIVE PULMONARY DISEASE, UNSPECIFIED Status: Acute Current Visit: No Problem Details: Hx of COPD, CXR could represent pulmonary fluid overload, but he is currently onm Lasix 20mg po qd. Qualifiers: COPD type: COPD with acute exacerbation Qualified Code(s): J44.1 - Chronic obstructive pulmonary disease with (acute) exacerbation - Patient Instructions Diet: Usual Diet as Tolerated Activity: As Tolerated Driving: May Drive Today Showering/Bathing: May Shower Other/Special Instructions: Make an appt to see your [facility] Provider in the next week for recheck - Discharge Plan Prescriptions/Med Rec: Metoprolol Tartrate 50 mg PO BID #60 tablet Doxycycline [Vibramycin] 100 mg PO DAILY #20 tab Home Medications: Home Meds Brimonidine Tartrate [Alphagan P] 1 drop EYEBOTH BID 05/24/15 [History] Calcium Carbonate/Vitamin D3 [Os-Ric 500+D] 1 tab PO BIDMEALS 05/24/15 [History] Levothyroxine Sodium [Synthroid] 175 mcg PO DAILY 05/24/15 [History] Multivitamin [Multi-Vitamin Daily] 1 tab PO DAILY 05/24/15 [History] Omeprazole [Prilosec] 20 mg PO DAILY 05/24/15 [History] Acetaminophen [Tylenol] 650 mg PO Q4H PRN MDD 9 tablets per day 05/19/17 [History] Cholecalciferol (Vitamin D3) [Vitamin D3] 2,000 units PO DAILY 05/19/17 [History] Docusate Sodium [Colace] 100 mg PO BID 05/19/17 [History] Clindamycin Phosphate 1 applic TOP BID 12/24/20 [History] Fluconazole [Diflucan] 200 mg PO DAILY 12/24/20 [History] Fluticasone Propion/Salmeterol [Advair Hfa 230-21 Mcg Inhaler] 1 inh PO Q12H 12/24/20 [History] Furosemide [Lasix] 20 mg PO DAILY 12/24/20 [History] Ibrutinib [Imbruvica] 280 mg PO DAILY 12/24/20 [History] Latanoprost [Xalatan] 1 drop EYEBOTH BEDTIME 12/24/20 [History] Magnesium Oxide [Magnesium] 500 mg PO BID 12/24/20 [History] Potassium Chloride [Klor-Con M20] 10 meq PO SUTUTHSA@0800 12/24/20 [History] Doxycycline [Vibramycin] 100 mg PO DAILY #20 tab 12/25/20 [Rx] Metoprolol Tartrate 50 mg PO BID #60 tablet 12/25/20 [Rx] Forms: ED Department Discharge Referrals: PCP,Not In Area [Primary Care Provider] - - Discharge Summary/Plan Comment DC Time >30 min.: Yes Total # of Minutes for Discharge Time: 45 - Patient Data Vitals - Most Recent: Last Vital Signs Temp 37.0 C 12/25/20 10:00 Pulse 84 12/25/20 10:00 Resp 24 H 12/25/20 10:00 BP 110/73 12/25/20 10:00 Pulse Ox 95 12/25/20 10:00 Weight - Most Recent: 83.688 kg I&O - Last 24 hours: Intake & Output 12/24/20 12/25/20 12/25/20 22:59 06:59 14:59 Intake Total 629 400 366 Balance 629 400 366 Lab Results - Last 24 hrs: Laboratory Results - last 24 hr 12/24/20 Range/Units 16:03 Lactic Acid 1.7 (0.4-2.0) mmol/L KYLE Results - Last 24 hrs: Microbiology 12/24/20 10:23 Aerobic Blood Culture - Preliminary Blood - Venous - Lab Draw NO GROWTH AFTER 1 DAY Anaerobic Blood Culture - Preliminary NO GROWTH AFTER 1 DAY 12/24/20 10:16 Aerobic Blood Culture - Preliminary Blood - Venous NO GROWTH AFTER 1 DAY Anaerobic Blood Culture - Preliminary NO GROWTH AFTER 1 DAY 12/24/20 09:43 Urine Culture - Preliminary Urine, Clean Catch NO GROWTH AFTER 1 DAY Med Orders - Current: Current Medications Acetaminophen (Acetaminophen 325 Mg Tab) 650 mg PO Q4H PRN PRN Reason: Pain (mild 1-3) Calcium Carbonate (Calcium Carbonate/Vitamin D3 1250 Mg-5 Mcg Tab) 1 tab PO BIDMEALS [facility] Last Admin: 12/25/20 08:07 Dose: 1 tab Documented by: Ceftriaxone Sodium (Ceftriaxone 2 Gm Vial) 2 gm IVPUSH DAILY@1200 AG Cholecalciferol (Cholecalciferol (Vitamin D3) 25 Mcg Tab) 50 mcg PO DAILY [facility] Last Admin: 12/25/20 08:06 Dose: 50 mcg Documented by: Docusate Sodium (Docusate Sodium 100 Mg Cap) 100 mg PO BID [facility] Last Admin: 12/25/20 08:07 Dose: Not Given Documented by: Doxycycline Hyclate (Doxycycline 100 Mg Cap) 100 mg PO BID [facility] Last Admin: 12/25/20 08:07 Dose: 100 mg Documented by: Furosemide (Furosemide 20 Mg Tab) 20 mg PO DAILY [facility] Last Admin: 12/25/20 09:32 Dose: 20 mg Documented by: Sodium Chloride (Normal Saline) 1,000 mls @ 150 mls/hr IV ASDIRECTED [facility] Last Admin: 12/25/20 02:56 Dose: 150 mls/hr Documented by: Levothyroxine Sodium (Levothyroxine 175 Mcg Tab (Own Supply)) 175 mcg PO DAILY [facility] Last Admin: 12/25/20 09:31 Dose: 175 mcg Documented by: Magnesium Oxide (Magnesium Oxide 400 Mg Tab) 400 mg PO BID [facility] Last Admin: 12/25/20 08:06 Dose: 400 mg Documented by: Multivitamins/Minerals (Multivitamins With Iron/Calcium/Folic Acid/Minerals Tab) 1 tab PO DAILY [facility] Last Admin: 12/25/20 08:06 Dose: 1 tab Documented by: Brimonidine Tartrate ([Alphagan P 0.1%]) 1 drop EYEBOTH BID [facility] Last Admin: 12/25/20 08:08 Dose: 1 drop Documented by: Clindamycin Phosphate Lotion ( Own Supply) 1 applic TOP BID [facility] Fluconazole [ Diflucan] 200 Mg Tablet (Own Supply) 0 mg PO DAILY [facility] Last Admin: 12/25/20 09:31 Dose: 200 mg Documented by: Fluticasone Propion/Salmeterol Advair Hfa 230-21 Mcg Inh 1 inh PO Q12H [facility] Last Admin: 12/25/20 08:08 Dose: 1 inh Documented by: Ibrutinib [Imbruvica ] 280 Mg Tablet (( Own Supply) 0 mg PO DAILY [facility] Last Admin: 12/25/20 09:32 Dose: 280 mg Documented by: Latanoprost Xalatan (0.005%) 1 drop EYEBOTH BEDTIME [facility] Last Admin: 12/24/20 19:43 Dose: 1 drop Documented by: Omeprazole (Omeprazole 20 Mg Cap.Cr) 20 mg PO DAILY [facility] Last Admin: 12/25/20 08:06 Dose: 20 mg Documented by: Potassium Chloride (Potassium Chloride 20 Meq Tab.Er (Own Supply)) 10 meq PO SUTUTHSA@0800 [facility] Sodium Chloride (Sodium Chloride 0.9% 10 Ml Syringe) 10 ml FLUSH ASDIRECTED PRN PRN Reason: Keep Vein Open Discontinued Medications Ceftriaxone Sodium (Ceftriaxone 2 Gm Vial) 2 gm IVPUSH STAT ONE Stop: 12/24/20 11:13 Last Admin: 12/24/20 11:35 Dose: 2 gm Documented by: Doxycycline Hyclate (Doxycycline 100 Mg Cap) 100 mg PO BID [facility] Last Admin: 12/24/20 11:35 Dose: 100 mg Documented by: Furosemide (Furosemide 20 Mg/2 Ml Vial) 20 mg IV ONETIME ONE Stop: 12/24/20 10:11 Last Admin: 12/24/20 11:35 Dose: 20 mg Documented by: Magnesium Chloride (Magnesium Chloride 64 Mg Tab.Er) 64 mg PO ONETIME ONE Stop: 12/24/20 10:02 Last Admin: 12/24/20 11:35 Dose: 64 mg Documented by: Metoprolol Tartrate (Metoprolol Tartrate 5 Mg/5 Ml Sdv) 5 mg IVPUSH ONETIME ONE Stop: 12/24/20 09:21 Last Admin: 12/24/20 09:26 Dose: 5 mg Documented by: Metoprolol Tartrate (Metoprolol Tartrate 50 Mg Tab) 50 mg PO BID [facility] Last Admin: 12/24/20 11:42 Dose: 50 mg Documented by:
[2020-12-25] MEDS ORDERED: CLINDAMYCIN PHOSPHATE TOP SCH (20:00)
[2020-12-26] MEDS ORDERED: Potassium Chloride 20 MEQ Tab.ER (OWN SUPPLY) PO SCH (08:00)
== END 2020-12-25 13:05 | disposition home or self-care (01) ==
LOC: VM.ED 08:24 → VM.MS 11:56
PROVIDERS: ADMIT Physician Assistant; ATTEND Physician Assistant
DX: J18.9 Pneumonia, unspecified organism (principal); I48.91 Unspecified atrial fibrillation; J44.9 Chronic obstructive pulmonary disease, unspecified; E78.00 Pure hypercholesterolemia, unspecified; I10 Essential (primary) hypertension; E03.9 Hypothyroidism, unspecified; Z20.822 Contact with and (suspected) exposure to COVID-19; Z98.890 Other specified postprocedural states; Z87.891 Personal history of nicotine dependence; Z88.8 Allergy status to other drugs, medicaments and biological substances; Z79.899 Other long term (current) drug therapy; Z79.890 Hormone replacement therapy
CPT/HCPCS: 0241U; 36415; 71045; 80053; 81001; 82803; 83605; 83735; 83880; 84145; 84484; 85025; 85379; 85610; 85730; 87040; 87086; 93005; 93010; 96374; 96375; 99220; 99239; 99285-25; A9270-GY; J0696; J1940; J3490; J7030

== ENCOUNTER 2022-05-23 18:50 | Emergency (ER) | payer OTHER, MEDICARE, BC ==
[2022-05-23 19:26] LABS: PTT,PARTIAL THROMBOPLSTIN TIME 25.2 SEC (23.6-33.6)
[2022-05-23 19:30] LABS: CHLORIDE,CL 103 mmol/L (98-107); SODIUM,NA 140 mmol/L (136-145)
[2022-05-23 19:31] LABS: ESTIMATED GFR 38 mL/min (>=60)
== END 2022-05-23 20:00 | disposition short-term general hospital (02) ==
LOC: VM.ED 18:50
DX: R41.82 Altered mental status, unspecified (principal); J44.1 Chronic obstructive pulmonary disease with (acute) exacerbation; C91.10 Chronic lymphocytic leukemia of B-cell type not having achieved remission; R55 Syncope and collapse; I48.0 Paroxysmal atrial fibrillation; E03.9 Hypothyroidism, unspecified; I10 Essential (primary) hypertension; Z88.8 Allergy status to other drugs, medicaments and biological substances; Z79.899 Other long term (current) drug therapy
CPT/HCPCS: 36415; 70450; 80053; 84484; 85025; 85610; 85730; 93010; 99284; 99285

== ENCOUNTER 2022-06-05 12:56 | Emergency (ER) | payer OTHER, MEDICARE, BC ==
[2022-06-05] MEDS: Oxymetazoline 0.05% Nasal Spray 30 ML Bottle NAS ONE (13:13)
[2022-06-09 10:39] VITALS: BP 131/86; PULSE 87
== END 2022-06-05 14:09 | disposition home or self-care (01) ==
LOC: VM.ED 12:56
DX: R04.0 Epistaxis (principal); E78.00 Pure hypercholesterolemia, unspecified; I10 Essential (primary) hypertension; E03.9 Hypothyroidism, unspecified; J44.9 Chronic obstructive pulmonary disease, unspecified; Z88.8 Allergy status to other drugs, medicaments and biological substances; Z79.899 Other long term (current) drug therapy; Z87.891 Personal history of nicotine dependence
CPT/HCPCS: 30901; 99283; 99284; A9270-GY

== ENCOUNTER 2022-07-30 08:26 | Emergency (ER) | payer OTHER, MEDICARE, BC ==
[2022-07-30] MEDS ORDERED: Oxymetazoline 0.05% Nasal Spray 30 ML Bottle NAS ONE (08:38)
[2022-07-30 08:54] LABS: BASOPHILS PERCENT AUTO 0.5 % (0.2-1.2); EOSINOPHILS ABSOLUTE AUTO 0.1 x10^3/uL (0.0-0.5); HEMATOCRIT 37.7 % (40.0-52.0); HEMOGLOBIN 11.7 g/dL (14.0-18.0); IMMATURE GRAN ABSOLUTE AUTO 0.03 x10^3/uL (0.00-0.07); LYMPHOCYTES ABSOLUTE AUTO 1.6 x10^3/uL (1.0-4.8); LYMPHOCYTES PERCENT AUTO 26.9 % (25.0-50.0); MEAN CORPUSCULAR HEMOGLOBIN 25.5 pg (26.0-32.0); MEAN CORPUSCULAR VOLUME 82.3 fL (78.0-93.0); MONOCYTES ABSOLUTE AUTO 0.6 x10^3/uL (0.0-0.8); MONOCYTES PERCENT AUTO 9.4 % (2.0-11.0); NEUTROPHILS ABSOLUTE AUTO 3.7 x10^3/uL (1.8-7.7); NEUTROPHILS PERCENT AUTO 61.7 % (50.0-80.0); PLATELET COUNT,PLT 99 x10^3/uL (130-400); RED BLOOD CELL COUNT 4.58 x10^6/uL (4.5-6.0); WHITE BLOOD CELL COUNT,WBC 6.1 x10^3/uL (4.0-10.0)
[2022-07-30 09:13] LABS: PROTHROMBIN TIME 11.1 SEC (9.5-12.2); PTT,PARTIAL THROMBOPLSTIN TIME 27.2 SEC (23.6-33.6)
[2022-07-30 11:23] VITALS: BP 126/81; PULSE 83
== END 2022-07-30 11:16 | disposition home or self-care (01) ==
LOC: VM.ED 08:26
DX: R04.0 Epistaxis (principal); I10 Essential (primary) hypertension; E78.00 Pure hypercholesterolemia, unspecified; E03.9 Hypothyroidism, unspecified; Z88.8 Allergy status to other drugs, medicaments and biological substances; Z79.899 Other long term (current) drug therapy; Z87.891 Personal history of nicotine dependence
CPT/HCPCS: 30903; 36415; 85025; 85610; 85730; 99283; A9270

== ENCOUNTER 2022-08-01 11:15 | Emergency (ER) | payer OTHER, MEDICARE, BC ==
[2022-08-01 11:37] VITALS: BP 122/85; PULSE 75
== END 2022-08-01 12:50 | disposition home or self-care (01) ==
LOC: VM.ED 11:15
DX: R04.0 Epistaxis (principal); I10 Essential (primary) hypertension; J44.9 Chronic obstructive pulmonary disease, unspecified; E03.9 Hypothyroidism, unspecified; Z79.899 Other long term (current) drug therapy; Z88.8 Allergy status to other drugs, medicaments and biological substances
CPT/HCPCS: 30901; 99282; 99283

== ENCOUNTER 2022-11-09 09:58 | Emergency (ER) | payer OTHER, MEDICARE, BC ==
[2022-11-09] MEDS ORDERED: Oxymetazoline 0.05% Nasal Spray 30 ML Bottle NAS ONE (10:05)
[2022-11-09 10:07] VITALS: BP 130/83; PULSE 86
== END 2022-11-09 10:47 | disposition home or self-care (01) ==
LOC: VM.ED 09:58
DX: R04.0 Epistaxis (principal); E78.00 Pure hypercholesterolemia, unspecified; I10 Essential (primary) hypertension; J44.9 Chronic obstructive pulmonary disease, unspecified; E03.9 Hypothyroidism, unspecified; Z79.899 Other long term (current) drug therapy; Z88.8 Allergy status to other drugs, medicaments and biological substances
CPT/HCPCS: 30905; 99283; A9270

== ENCOUNTER 2022-12-09 15:18 | Emergency (ER) | payer OTHER, MEDICARE, BC ==
[2022-12-09] MEDS ORDERED: Sodium Chloride 0.9% 1,000 ML IV ONE (15:26)
[2022-12-09] MEDS ORDERED: cefTRIAXone 1 GM Vial IVPUSH ONE (15:26)
[2022-12-09 15:46] LABS: BASOPHILS PERCENT AUTO 0.5 % (0.2-1.2); HEMATOCRIT 30.5 % (40.0-52.0); HEMOGLOBIN 9.2 g/dL (14.0-18.0); IMMATURE GRAN ABSOLUTE AUTO 0.03 x10^3/uL (0.00-0.07); LYMPHOCYTES ABSOLUTE AUTO 1.3 x10^3/uL (1.0-4.8); LYMPHOCYTES PERCENT AUTO 19.3 % (25.0-50.0); MEAN CORPUSCULAR HEMOGLOBIN 21.4 pg (26.0-32.0); MEAN CORPUSCULAR HGB CONC 30.2 g/dL (32.0-36.0); MEAN CORPUSCULAR VOLUME 70.9 fL (78.0-93.0); MONOCYTES ABSOLUTE AUTO 0.8 x10^3/uL (0.0-0.8); MONOCYTES PERCENT AUTO 12.5 % (2.0-11.0); NEUTROPHILS ABSOLUTE AUTO 4.5 x10^3/uL (1.8-7.7); NEUTROPHILS PERCENT AUTO 67.2 % (50.0-80.0); PLATELET COUNT,PLT 107 x10^3/uL (130-400); WHITE BLOOD CELL COUNT,WBC 6.6 x10^3/uL (4.0-10.0)
[2022-12-09 16:05] LABS: A/G RATIO 0.93; ALANINE AMINOTRANSFERASE,ALT 19 U/L (16-63); ALBUMIN 2.8 g/dL (3.4-5.0); ALKALINE PHOSPHATASE 82 U/L (46-116); ASPARTATE AMNIOTRANSFERASE,AST 22 U/L (15-37); BILIRUBIN TOTAL 0.6 mg/dL (0.2-1.0); BLOOD UREA NITROGEN,BUN 28 mg/dL (7-18); CALCIUM 8.6 mg/dL (8.5-10.1); CARBON DIOXIDE,CO2 25 mmol/L (21-32); CHLORIDE,CL 104 mmol/L (98-107); CREATININE 1.7 mg/dL (0.70-1.30); ESTIMATED GFR 41 mL/min (>=60); GLUCOSE RANDOM 87 mg/dL (70-99); PROTEIN TOTAL,TP 5.8 g/dL (6.4-8.2); SODIUM,NA 140 mmol/L (136-145)
[2022-12-09] MEDS ORDERED: Acetaminophen 325 MG Tab PO ONE (16:35)
[2022-12-09 16:52] VITALS: BP 103/68; PULSE 89
[2022-12-09 16:53] LABS: CORONAVIRUS COVID-19 NAA POSITIVE (NEGATIVE); INFLUENZA A NAA NEGATIVE (NEGATIVE); INFLUENZA B NAA NEGATIVE (NEGATIVE)
== END 2022-12-09 17:48 | disposition short-term general hospital (02) ==
LOC: VM.ED 15:18
DX: U07.1 COVID-19 (principal); R53.83 Other fatigue; I10 Essential (primary) hypertension; J44.9 Chronic obstructive pulmonary disease, unspecified; E03.9 Hypothyroidism, unspecified; Z88.8 Allergy status to other drugs, medicaments and biological substances; Z79.899 Other long term (current) drug therapy
CPT/HCPCS: 0240U; 36415; 71045; 80053; 83605; 85025; 87040; 96361; 96374; 99285; A9270; J0696; J7030

== ENCOUNTER 2023-01-07 10:17 | Emergency (ER) | payer OTHER, MEDICARE, BC ==
[2023-01-07] MEDS ORDERED: Oxymetazoline 0.05% Nasal Spray 30 ML Bottle NAS ONE (10:31)
[2023-01-07 10:43] VITALS: PULSE 92
[2023-01-07 11:03] VITALS: BP 127/70
== END 2023-01-07 11:30 | disposition home or self-care (01) ==
LOC: VM.ED 10:17
DX: R04.0 Epistaxis (principal); I10 Essential (primary) hypertension; E78.00 Pure hypercholesterolemia, unspecified; J44.9 Chronic obstructive pulmonary disease, unspecified; E03.9 Hypothyroidism, unspecified; Z86.16 Personal history of COVID-19; Z88.8 Allergy status to other drugs, medicaments and biological substances; Z79.899 Other long term (current) drug therapy
CPT/HCPCS: 30901; 99283; 99284; A9270-GY

== ENCOUNTER 2023-02-03 13:38 | Emergency (ER) | payer OTHER, MEDICARE, BC ==
[2023-02-03 14:23] VITALS: BP 103/64; PULSE 103
== END 2023-02-03 14:40 | disposition home or self-care (01) ==
LOC: VM.ED 13:38
DX: R04.0 Epistaxis (principal); I10 Essential (primary) hypertension; J44.9 Chronic obstructive pulmonary disease, unspecified; E03.9 Hypothyroidism, unspecified; Z88.8 Allergy status to other drugs, medicaments and biological substances; Z86.16 Personal history of COVID-19; Z79.899 Other long term (current) drug therapy
CPT/HCPCS: 30905; 99283

== ENCOUNTER 2023-03-06 09:48 | Emergency (ER) | payer OTHER, MEDICARE, BC ==
[2023-03-06 10:14] VITALS: BP 136/99; PULSE 96
[2023-03-06 10:18] LABS: BASOPHILS PERCENT AUTO 0.5 % (0.2-1.2); EOSINOPHILS PERCENT AUTO 0.5 % (0.0-4.0); HEMOGLOBIN 11.8 g/dL (14.0-18.0); IMMATURE GRAN ABSOLUTE AUTO 0.02 x10^3/uL (0.00-0.07); LYMPHOCYTES PERCENT AUTO 23.8 % (25.0-50.0); MEAN CORPUSCULAR HEMOGLOBIN 24.5 pg (26.0-32.0); MEAN CORPUSCULAR HGB CONC 30.3 g/dL (32.0-36.0); MEAN CORPUSCULAR VOLUME 80.9 fL (78.0-93.0); MONOCYTES ABSOLUTE AUTO 0.8 x10^3/uL (0.0-0.8); NEUTROPHILS ABSOLUTE AUTO 5.5 x10^3/uL (1.8-7.7); PLATELET COUNT,PLT 95 x10^3/uL (130-400); RED BLOOD CELL COUNT 4.82 x10^6/uL (4.5-6.0); WHITE BLOOD CELL COUNT,WBC 8.4 x10^3/uL (4.0-10.0)
[2023-03-06 10:35] LABS: BILIRUBIN,URINE NEGATIVE (NEGATIVE); COLOR,URINE DARK YELLOW (YELLOW); GLUCOSE,URINE NEGATIVE (NEGATIVE); KETONES,URINE NEGATIVE (NEGATIVE); LEUKOCYTE ESTERASE,URINE NEGATIVE (NEGATIVE); NITRITE,URINE NEGATIVE (NEGATIVE); OCCULT BLOOD,URINE NEGATIVE (NEGATIVE); PROTEIN,URINE NEGATIVE (NEGATIVE); UROBILINOGEN,URINE 0.2 EU/dL (0.2)
[2023-03-06 10:35] LABS: A/G RATIO 0.97; ALANINE AMINOTRANSFERASE,ALT 18 U/L (16-63); ALBUMIN 2.9 g/dL (3.4-5.0); ALKALINE PHOSPHATASE 84 U/L (46-116); ANION GAP 14.8 mmol/L (5-15); ASPARTATE AMNIOTRANSFERASE,AST 31 U/L (15-37); BILIRUBIN TOTAL 0.6 mg/dL (0.2-1.0); BLOOD UREA NITROGEN,BUN 29 mg/dL (7-18); C-REACTIVE PROTEIN 1.71 mg/dL (<=0.50); CALCIUM 8.8 mg/dL (8.5-10.1); CARBON DIOXIDE,CO2 27 mmol/L (21-32); CHLORIDE,CL 106 mmol/L (98-107); ESTIMATED GFR 33 mL/min (>=60); GLUCOSE RANDOM 93 mg/dL (70-99); LIPASE 14 U/L (19-71); POTASSIUM,K 4.8 mmol/L (3.5-5.1); PROTEIN TOTAL,TP 5.9 g/dL (6.4-8.2); SODIUM,NA 143 mmol/L (136-145)
[2023-03-06 10:38] LABS: APPEARANCE,URINE CLEAR (CLEAR)
[2023-03-06] MEDS ORDERED: Sodium Chloride 0.9% 1,000 ML IV ONE (10:42)
== END 2023-03-06 13:10 | disposition home or self-care (01) ==
LOC: VM.ED 09:48
DX: K59.00 Constipation, unspecified (principal)
CPT/HCPCS: 36415; 74176; 80053; 81003; 83690; 85025; 86140; 96360; 99284; 99285; J7030

== ENCOUNTER 2023-08-14 11:21 | Emergency (ER) | payer OTHER, MEDICARE, BC ==
[2023-08-14 11:46] VITALS: BP 125/86; PULSE 92
[2023-08-14 11:52] LABS: BASOPHILS PERCENT AUTO 0.4 % (0.2-1.2); EOSINOPHILS ABSOLUTE AUTO 0.1 x10^3/uL (0.0-0.5); EOSINOPHILS PERCENT AUTO 0.7 % (0.0-4.0); IMMATURE GRAN ABSOLUTE AUTO 0.03 x10^3/uL (0.00-0.07); LYMPHOCYTES ABSOLUTE AUTO 1.7 x10^3/uL (1.0-4.8); LYMPHOCYTES PERCENT AUTO 22.3 % (25.0-50.0); MEAN CORPUSCULAR HEMOGLOBIN 28.4 pg (26.0-32.0); MEAN CORPUSCULAR HGB CONC 32.5 g/dL (32.0-36.0); MEAN CORPUSCULAR VOLUME 87.5 fL (78.0-93.0); MONOCYTES ABSOLUTE AUTO 0.5 x10^3/uL (0.0-0.8); MONOCYTES PERCENT AUTO 7.1 % (2.0-11.0); NEUTROPHILS ABSOLUTE AUTO 5.1 x10^3/uL (1.8-7.7); NEUTROPHILS PERCENT AUTO 69.1 % (50.0-80.0); PLATELET COUNT,PLT 136 x10^3/uL (130-400); RED BLOOD CELL COUNT 4.57 x10^6/uL (4.5-6.0); WHITE BLOOD CELL COUNT,WBC 7.4 x10^3/uL (4.0-10.0)
[2023-08-14 11:53] LABS: APPEARANCE,URINE CLEAR (CLEAR); BILIRUBIN,URINE NEGATIVE (NEGATIVE); COLOR,URINE YELLOW (YELLOW); GLUCOSE,URINE NEGATIVE (NEGATIVE); KETONES,URINE NEGATIVE (NEGATIVE); LEUKOCYTE ESTERASE,URINE NEGATIVE (NEGATIVE); NITRITE,URINE NEGATIVE (NEGATIVE); OCCULT BLOOD,URINE NEGATIVE (NEGATIVE); PROTEIN,URINE NEGATIVE (NEGATIVE); UROBILINOGEN,URINE 0.2 EU/dL (0.2)
[2023-08-14 12:05] LABS: CALCIUM 9.3 mg/dL (8.5-10.1); CREATININE 1.5 mg/dL (0.70-1.30); EST CRCL DRUG DOSING (CG) 41.23 mL/min; POTASSIUM,K 4.5 mmol/L (3.5-5.1)
[2023-08-14 12:07] LABS: ANION GAP 11.5 mmol/L (5-15); PROTHROMBIN TIME 10.4 SEC (8.9-11.5)
[2023-08-14] MEDS ORDERED: Sodium Chloride 0.9% 10 ML Syringe FLUSH PRN (13:13)
[2023-08-14] MEDS: HYDROmorphone 0.5 MG/0.5 ML Syringe IVPUSH ONE (13:30)
== END 2023-08-14 14:27 | disposition short-term general hospital (02) ==
LOC: VM.ED 11:21 → SUPCPDRO 11:21 → VM.ED 14:27
DX: S72.141A Displaced intertrochanteric fracture of right femur, initial encounter for closed fracture (principal); I12.9 Hypertensive chronic kidney disease with stage 1 through stage 4 chronic kidney disease, or unspecified chronic kidney disease; J44.9 Chronic obstructive pulmonary disease, unspecified; E03.9 Hypothyroidism, unspecified; K21.9 Gastro-esophageal reflux disease without esophagitis; N18.30 Chronic kidney disease, stage 3 unspecified; Z87.891 Personal history of nicotine dependence; Z86.16 Personal history of COVID-19; Z79.899 Other long term (current) drug therapy; Z79.890 Hormone replacement therapy; Z79.1 Long term (current) use of non-steroidal anti-inflammatories (NSAID); Z88.8 Allergy status to other drugs, medicaments and biological substances; W50.0XXA Accidental hit or strike by another person, initial encounter
CPT/HCPCS: 36415; 71045; 72170; 73552; 80048; 81003; 85025; 85610; 96374; 99285; J1170

== ENCOUNTER 2023-08-20 12:25 | Emergency (ER) | payer OTHER, MEDICARE, BC ==
[2023-08-20 12:46] LABS: BASOPHILS PERCENT AUTO 0.6 % (0.2-1.2); EOSINOPHILS ABSOLUTE AUTO 0.2 x10^3/uL (0.0-0.5); EOSINOPHILS PERCENT AUTO 3.1 % (0.0-4.0); HEMATOCRIT 28.1 % (40.0-52.0); IMMATURE GRAN ABSOLUTE AUTO 0.02 x10^3/uL (0.00-0.07); LYMPHOCYTES ABSOLUTE AUTO 0.7 x10^3/uL (1.0-4.8); MEAN CORPUSCULAR HEMOGLOBIN 29.2 pg (26.0-32.0); MEAN CORPUSCULAR VOLUME 91.2 fL (78.0-93.0); MONOCYTES ABSOLUTE AUTO 0.6 x10^3/uL (0.0-0.8); MONOCYTES PERCENT AUTO 11.5 % (2.0-11.0); NEUTROPHILS ABSOLUTE AUTO 3.3 x10^3/uL (1.8-7.7); NEUTROPHILS PERCENT AUTO 69.4 % (50.0-80.0); PLATELET COUNT,PLT 106 x10^3/uL (130-400); RED BLOOD CELL COUNT 3.08 x10^6/uL (4.5-6.0); WHITE BLOOD CELL COUNT,WBC 4.8 x10^3/uL (4.0-10.0)
[2023-08-20 13:07] LABS: A/G RATIO 0.76; ALANINE AMINOTRANSFERASE,ALT 21 U/L (16-63); ALBUMIN 2.2 g/dL (3.4-5.0); ALKALINE PHOSPHATASE 85 U/L (46-116); ASPARTATE AMNIOTRANSFERASE,AST 26 U/L (15-37); BILIRUBIN TOTAL 1.2 mg/dL (0.2-1.0); BLOOD UREA NITROGEN,BUN 23 mg/dL (7-18); CALCIUM 8.6 mg/dL (8.5-10.1); CARBON DIOXIDE,CO2 26 mmol/L (21-32); CHLORIDE,CL 105 mmol/L (98-107); CREATININE 1.5 mg/dL (0.70-1.30); GLUCOSE RANDOM 133 mg/dL (70-99); POTASSIUM,K 3.9 mmol/L (3.5-5.1); PROTEIN TOTAL,TP 5.1 g/dL (6.4-8.2); SODIUM,NA 140 mmol/L (136-145)
[2023-08-20 13:08] LABS: ANION GAP 12.9 mmol/L (5-15); ESTIMATED GFR 47 mL/min (>=60)
[2023-08-20] MEDS: Sodium Chloride 0.9% 1,000 ML IV ONE (13:10)
[2023-08-20 13:44] LABS: APPEARANCE,URINE SLIGHTLY CLOUDY (CLEAR); BILIRUBIN,URINE NEGATIVE (NEGATIVE); COLOR,URINE YELLOW (YELLOW); GLUCOSE,URINE NEGATIVE (NEGATIVE); KETONES,URINE NEGATIVE (NEGATIVE); LEUKOCYTE ESTERASE,URINE TRACE (NEGATIVE); NITRITE,URINE NEGATIVE (NEGATIVE); OCCULT BLOOD,URINE MODERATE (NEGATIVE); PH,URINE 7.5 (5.0-8.0); PROTEIN,URINE 100 mg/dL (NEGATIVE); UROBILINOGEN,URINE 0.2 EU/dL (0.2)
[2023-08-20] MEDS: Sodium Chloride 0.9% 500 ML IV SCH (13:44)
[2023-08-20 13:53] LABS: BACTERIA,URINE RARE /HPF (NOT SEEN); HYALINE CASTS,URINE RARE; RBC,URINE 30-40 /HPF (NOT SEEN); SQUAMOUS EPITHELIAL CELLS,UR RARE /HPF (NOT SEEN); WBC,URINE 0-5 /HPF (NOT SEEN)
[2023-08-20 13:54] LABS: GRANULAR CASTS,URINE RARE
[2023-08-20 15:02] VITALS: BP 101/68; PULSE 79
== END 2023-08-20 14:45 ==
LOC: VM.ED 12:25
DX: R41.82 Altered mental status, unspecified (principal); I95.9 Hypotension, unspecified; E86.1 Hypovolemia; R62.7 Adult failure to thrive; I10 Essential (primary) hypertension; J44.9 Chronic obstructive pulmonary disease, unspecified; Z86.16 Personal history of COVID-19; Z79.899 Other long term (current) drug therapy; Z88.8 Allergy status to other drugs, medicaments and biological substances
CPT/HCPCS: 36415; 70450; 71045; 80053; 81001; 83605; 84484; 85025; 93005; 96360; 99285; J7030